=== PATIENT | male | born 1935 | race Caucasian/White ===

== ENCOUNTER 2017-03-28 08:32 | Inpatient (IN) | payer OTHER, MEDICARE ==
[~2017-03-28] VITALS: Ht 170.2 cm; Wt 75.8 kg
[~2017-03-28 08:32] MED LIST: ALENDRONATE SOD70 MG PO; AUGMENTIN 875875 MG PO; CALCIUM + D 6001 TAB PO; LOSARTAN POTAS100 M1 PO; Robitussin Dm PO; SYMBICORT 80/4.1 PUF INH; VENTOLIN1 PUF INH; VITAMIN D32000 IU PO; VITAMIN D32000 UNI1 PO
--- NOTE | 2017-03-28 09:03 | ED DYSPNEA/ASTHMA COMPLAINT ---
History of Present Illness General Chief Complaint: General Adult Stated Complaint: SOB Source: patient Exam Limitations: no limitations Vital Signs & Intake/Output Vital Signs & Intake/Output Vital Signs Date Time Temp Pulse Resp B/P B/P Pulse O2 O2 Flow FiO2 Mean Ox Delivery Rate 03/28 1415 98.7 120 18 119/70 96 03/28 1326 98.2 113 24 115/56 94 Nasal 3.0L Cannula 03/28 1225 99.1 123 24 114/65 03/28 1217 99.1 118 24 114/65 94 Nasal 3.0L Cannula 03/28 1101 99.2 145 22 115/65 03/28 0955 92 Nasal 3.0L Cannula 03/28 0930 92 Nasal 2.0L Cannula 03/28 0845 99.5 116 28 119/71 89 Room Air Allergies Coded Allergies: NO KNOWN ALLERGIES (07/24/13) Reconcile Medications Albuterol Sulfate (Proair Hfa) 90 MCG HFA.AER.AD 2 PUF INH Q4-6 PRN PRN SHORTNESS OF BREATH (Reported) Amlodipine Besylate 5 MG TABLET 1 TAB PO DAILY HEART (Reported) Cholecalciferol (Vitamin D3) (Vitamin D3) 2,000 UNIT TABLET 1 TAB PO DAILY VITAMIN SUPPORT (Reported) Fluticasone/Salmeterol (Advair 250-50 Diskus) 250 MCG-50 MCG/DOSE BLST.W.DEV 1 PUF INH BID BREATHING PROBLEMS (Reported) Losartan Potassium 100 MG TABLET 1 TAB PO DAILY HEART (Reported) Metoprolol Tartrate 25 MG TABLET 1 TAB PO BID HEART (Reported) Triage Note: PT C/O SOB X 2 WEEKS. STATES HE USED TO GET SOB WITH EXERTION BUT NOW HE BECOMES SOB AT REST. PT DENIES CP. O2 SAT 89% ON RA IN TRIAGE Triage Nurses Notes Reviewed? yes Onset: Abrupt Duration: week(s):, constant, getting worse Timing: recent history Severity: moderate, severe HPI: 81-year-old male comes into emergency room with complaints of shortness of breath getting progressively worse over the past few weeks. Denies any chest pain. Denies any vomiting. Denies any chills. Patient has a [id number]-javg history. Patient reports that walking 10-15 steps he feels extremely short of breath and winded. He comes in for further evaluation. (Abhijeet Bae) Past History Travel History Traveled to [place] past 21 day No Medical History Any Pertinent Medical History? see below for history Cardiovascular: hypertension, A-FIB Respiratory: COPD History of MRSA: No History of VRE: No History of CDIFF: No Surgical History Surgical History: non-contributory Psychosocial History Who do you live with Spouse Services at Home None What is your primary language Macanese Tobacco Use: Quit >30 days ago ETOH Use: denies use Illicit Drug Use: denies illicit drug use Family History Family History, If Any: BROTHER BROTHER Relation not specified for: FH: CAD (coronary artery disease) Hx Contributory? No (Abhijeet Bae) Review of Systems Review of Systems Constitutional: Reports: see HPI. EENTM: Reports: no symptoms. Respiratory: Reports: see HPI. Cardiovascular: Reports: no symptoms. GI: Reports: no symptoms. Genitourinary: Reports: no symptoms. Musculoskeletal: Reports: no symptoms. Skin: Reports: no symptoms. Neurological/Psychological: Reports: no symptoms. Hematologic/Endocrine: Reports: no symptoms. Immunologic/Allergic: Reports: no symptoms. All Other Systems: Reviewed and Negative (Abhijeet Bae) Physical Exam Physical Exam General Appearance: alert, awake, moderate distress Head: atraumatic Eyes: Bilateral: normal appearance. Ears, Nose, Throat: normal ENT inspection, hearing grossly normal Neck: normal inspection Respiratory: decreased breath sounds, respiratory distress (moderate) Cardiovascular: irregularly irregular Extremities: normal inspection, normal range of motion, no edema Neurologic/Psych: awake, alert, oriented x 3, normal gait, normal mood/affect Skin: intact, normal color Core Measures ACS in differential dx? No CVA/TIA Diagnosis No Sepsis Present: No Sepsis Focused Exam Completed? No (Abhijeet Bae) Progress Differential Diagnosis: asthma, AMI, bronchitis, costochondritis, CHF, COPD, musculoskeletal pain, pericarditis, pulmonary embolism, pneumonia, pneumothorax, rib fracture, unstable angina Plan of Care: Orders Procedure Date/time Status CBC WITHOUT DIFFERENTIAL 03/29 0600 Active BASIC ELECTROLYTES PLUS BUN&CR 03/29 0600 Active Regular Diet 03/28 L Active TROPONIN LEVEL 03/28 2200 Active EKG 03/28 2200 Active TROPONIN LEVEL 03/28 1600 Complete EKG 03/28 1600 Active Lab Add-on Test 03/28 1146 Active STREP PNEUMO URINARY ANTIGEN 03/28 1143 Active LEGIONELLA URINARY ANTIGEN 03/28 1143 Active LOWER RESPIRATORY CULTURE 03/28 1143 Active Pathway - chart 03/28 1141 Active House Staff 03/28 1141 Active Patient Data 03/28 1141 Active Code Status 03/28 1141 Active LACTIC ACID 03/28 1139 Complete Patient Data 03/28 1120 Active Admit to inpatient 03/28 1052 Active Vital Signs 03/28 1052 Active Code Status 03/28 1052 Complete Intake & Output 03/28 0954 Active THYROID STIMULATING HORMONE 03/28 0925 Complete TOTAL IRON BINDING CAPACITY 03/28 0925 Complete FREE T4 03/28 0925 Complete FERRITIN 03/28 0925 Complete SERUM IRON 03/28 0925 Complete Telemetry/Health Technician Hearing 03/28 0843 Active RAPID VIRAL INFLUENZA A 03/28 0839 Complete BLOOD CULTURE 03/28 0839 Active TROPONIN LEVEL 03/28 0839 Complete LACTIC ACID 03/28 0839 Complete COMPREHENSIVE METABOLIC PANEL 03/28 0839 Complete CBC WITHOUT DIFFERENTIAL 03/28 0839 Complete EKG 03/28 0834 Active TRC EVALUATION (GEN) 03/28 UNK Active VTE Mechanical Prophylaxis 03/28 UNK Active Vital Signs 03/28 UNK Active Telemetry/Health Technician Hearing 03/28 UNK Active Current Medications Sig/Edilberto Start time Last Medication Dose Stop Time Status Admin Amlodipine Besylate 5 MG DAILY 03/29 1000 AC (Norvasc) Azithromycin 500 MG DAILY 03/29 1000 AC (Zithromax) Dextrose/Water 250 ML (D5W) Ceftriaxone Sodium 1,000 MG DAILY 03/29 1000 AC (Rocephin) Cholecalciferol 1,000 IU DAILY 03/29 1000 AC (Vitamin D) Enoxaparin Sodium 40 MG DAILY 03/29 1000 AC (Lovenox) Losartan Potassium 100 MG DAILY 03/29 1000 AC (Cozaar) Albuterol Sulfate 2 PUF Q4-6 PRN PRN 03/28 1200 AC (Ventolin) Budesonide/ 2 PUF BID 03/28 1147 AC 03/28 Formoterol Fumarate 1232 (Symbicort) Metoprolol Tartrate 25 MG BID 03/28 1147 AC 03/28 (Lopressor) 1225 Acetaminophen 650 MG Q6P PRN 03/28 1145 AC (Tylenol) Acetaminophen 1,000 MG Q6P PRN 03/28 1145 AC (Ofirmev) Sodium Chloride 1,000 ML .[id number] 03/28 1145 AC 03/28 (Normal Saline 0.9%) 03/29 0104 1232 Laboratory Tests 03/28/17 1345: Troponin I 0.02 03/28/17 1110: Lactic Acid 1.9 03/28/17 0925: Anion Gap 17 H, Estimated GFR > 60, BUN/Creatinine Ratio 25.0, Glucose 112 H, Lactic Acid 2.2 H, Calcium 9.4, Iron 19 L, TIBC 294, Ferritin 130.0, Total Bilirubin 1.4 H, AST 15 L, ALT 28, Alkaline Phosphatase 135 H, Troponin I 0.02, Total Protein 7.6, Albumin 4.3, Globulin 3.3, Albumin/Globulin Ratio 1.3, TSH 3.680, Free T4 1.49, CBC w Diff MAN DIFF ORDERED, RBC 5.79, MCV 67.4 L, MCH 20.9 L, MCHC 31.0 L, RDW 16.9 H, MPV 8.8, Gran % 85.7 H, Lymphocytes % 6.6 L, Monocytes % 7.1, Eosinophils % 0.6, Basophils % 0, Absolute Granulocytes 14.7 H, Segmented Neutrophils 76 H, Band Neutrophils 2, Absolute Lymphocytes 1.1 L , Lymphocytes 12 L, Monocytes 9, Absolute Monocytes 1.2 H, Absolute Eosinophils 0.1, Basophils 1, Absolute Basophils 0, Platelet Estimate ADEQUATE, Polychromasia 1+, Hypochromic-Microcytic 2+, Poikilocytosis 2+, Anisocytosis 2+, Microcytic Cells 2+, Ovalocytes 1+, Elliptocytes 1+ Microbiology 03/28 1143 URINE ROUT: Legionella Antigen - ORD 03/28 1143 URINE ROUT: Streptococcus pneumoniae Antigen (M - ORD 03/28 1143 LOWER RESP: Respiratory Culture - ORD 03/28 1143 LOWER RESP: Gram Stain - ORD 03/28 1045 BLOOD: Blood Culture - RECD 03/28 0945 BLOOD: Blood Culture - RECD 03/28 929 NASOPHARYN: Influenza Virus A & B Rapid Smear - COMP Diagnostic Imaging: Viewed by Me: Radiology Read. Discussed w/RAD: Radiology Read. Initial ED EKG: rate (118), AFIB (Abhijeet Bae) Departure Departure Disposition: STILL A PATIENT Condition: Stable Clinical Impression Primary Impression: Right lower lobe pneumonia Secondary Impressions: Hypoxia, Rapid atrial fibrillation Referrals: Selina Deal APRN (PCP/Family) Departure Forms: Customer Survey General Discharge Information Admission Note Spoke With: Ramya Maier MD Documentation of Exam: Documentation of any treatments & extenuating circumstances including Concerns Regarding Discharge (functional status, medication knowledge or non-compliance, living conditions, etc.) that warrant an admission rather than observation: Patient will require supplemental oxygen. IV antibiotics. Pulmonary consultation. Medications for rate control of A. fib. Prior history of intracranial bleed which is why the patient is not on oral anticoagulants. His O2 saturation dropped to 84% on room air when he ambulates. She is not on oxygen normally. (Abhijeet Bae) Admission Note Documentation of Exam: Documentation of any treatments & extenuating circumstances including Concerns Regarding Discharge (functional status, medication knowledge or non-compliance, living conditions, etc.) that warrant an admission rather than observation: I've seen and examined the patient and I agree with the PA. The patient has rapid A. fib. Pneumonia. And hypoxia he requires IV antibiotics. PA/SOCIAL MEDIA COMMUNITY MANAGER Co-Sign Statement Statement: ED Attending supervision documentation- [X] I saw and evaluated the patient. I have also reviewed all the pertinent lab results and diagnostic results. I agree with the findings and the plan of care as documented in the PA's/SOCIAL MEDIA COMMUNITY MANAGER's documentation. [] I have reviewed the ED Record and agree with the PA's/SOCIAL MEDIA COMMUNITY MANAGER's documentation. [] Additions or exceptions (if any) to the PAs/SOCIAL MEDIA COMMUNITY MANAGER's note and plan are summarized below: [] (Lake Gomez DO) Critical Care Note Critical Care Note Critical Care Time: 30-74 min (45) (Abhijeet Bae)
[2017-03-28] MEDS ORDERED: METOPROLOL TART25 M1 PO (09:07)
[2017-03-28] MEDS ORDERED: AMLODIPINE BESYL5 M1 PO (09:07)
[2017-03-28] MEDS ORDERED: ADVAIR 250-501 EACH INH (09:08)
[2017-03-28] MEDS ORDERED: PROAIR HFA8.5 GM INH (09:10)
--- NOTE | 2017-03-28 09:15 | RADIOLOGY REPORT ---
EXAMINATION: XR CHEST CLINICAL INFORMATION: Shortness of breath COMPARISON: 12/12/2016 TECHNIQUE: 2 views of the chest were obtained. FINDINGS: There are increasingly conspicuous streaky opacities at the right lung base concerning for developing pneumonia. No pleural effusion or pneumothorax. Normal pulmonary vascularity. Cardiac silhouette is enlarged. The aorta is tortuous. There is sharp convex right thoracic scoliosis. 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 Diffuse osteopenia. IMPRESSION: Increasing right base opacity is suspicious for pneumonia. Recommend follow-up after treatment to confirm resolution.
[2017-03-28 09:49] LABS: ABSOLUTE BASOPHIL COUNT 0 /CUMM (0.0-0.2); ABSOLUTE EOSINOPHIL COUNT 0.1 /CUMM (0.0-0.7); ABSOLUTE GRANULOCYTE CT 14.7 /CUMM (1.4-6.5); ABSOLUTE LYMPH COUNT 1.1 /CUMM (1.2-3.4); ABSOLUTE MONOCYTE COUNT 1.2 /CUMM (0.10-0.60); BASOPHIL % 0 % (0.0-2.0); EOSINOPHIL % 0.6 % (0-5); GRANULOCYTE % 85.7 % (42.2-75.2); MEAN CORPUSCULAR HGB 20.9 PG (27.0-31.0); MEAN CORPUSCULAR VOLUME 67.4 FL (80.0-94.0); MEAN PLATELET VOLUME 8.8 FL (7.4-10.4); PLATELET COUNT 398 /CUMM (130-400); RBC DISTRIBUTION WIDTH 16.9 % (11.5-14.5); RED BLOOD CELL CT 5.79 /CUMM (4.70-6.10); WHITE BLOOD CELL COUNT 17.1 /CUMM (4.8-10.8)
--- NOTE | 2017-03-28 11:37 | History & Physical ---
Fitz Medina 03/28/17 1136: General Information and HPI MD Statement: I have seen and personally examined JORGE L RIZVI and documented this H&P. The patient is a 81 year old M who presented with a patient stated chief complaint of worsening shortness of breath, productive cough, chills for 1 day. Source of Information: patient Exam Limitations: no limitations History of Present Illness: This is a 81-year-old male with past medical history significant for COPD not on home oxygen, hypertension, history of atrial fibrillation on metoprolol, not on anticoagulation because of intracranial bleed presented to the emergency department with chief complaint of worsening shortness of breath, productive cough and chills for 1 day. Patient reports ongoing shortness of breath on exertion for last 1 week associated with productive cough. However he noticed worsening shortness of breath even at rest for last 1 day. He reports clear white colored sputum associated with cough for last 1 week. Denies any sick contact exposure, travel history. Of note he received his flu shot and pneumonia shot this year. Baseline he has COPD, uses proair and advair inhalers. Never admitted for any COPD exacerbations. Denies any chest pain, palpitations, chest pain with deep breaths, fever, hemoptysis, nausea, vomiting, abdomen pain, change in bladder or bowel habits. Review of systems was negative except for shortness of breath at rest, productive cough, chills. Patient reports being diagnosed with atrial fibrillation one year ago. He usually follows up with Dr. العلي hand folder. He usually takes metoprolol tartrate 25 mg twice daily for atrial fibrillation. However he is not on any blood thinners because of intracranial bleed that was 20 years back. Patient was last admitted to [facility] in 2013 for pneumonia and sepsis. Last echocardiogram was done in 2012 which showed ejection fraction 55% and right ventricular hypertrophy. He has 24-axyh-lvsp smoking history. Quit smoking 8 years ago. Denies any alcohol abuse, illicit drug abuse. Family history is pertinent for leukemia- mother, unknown cancer- father. He is independent of all activities. He usually follows up with primary care physician, hand folder and duplicate maker Dr. Duran. Allergies/Medications Allergies: Coded Allergies: NO KNOWN ALLERGIES (07/24/13) Home Med list Albuterol Sulfate (Proair Hfa) 90 MCG HFA.AER.AD 2 PUF INH Q4-6 PRN PRN SHORTNESS OF BREATH (Reported) Amlodipine Besylate 5 MG TABLET 1 TAB PO DAILY HEART (Reported) Cholecalciferol (Vitamin D3) (Vitamin D3) 2,000 UNIT TABLET 1 TAB PO DAILY VITAMIN SUPPORT (Reported) Fluticasone/Salmeterol (Advair 250-50 Diskus) 250 MCG-50 MCG/DOSE BLST.W.DEV 1 PUF INH BID BREATHING PROBLEMS (Reported) Losartan Potassium 100 MG TABLET 1 TAB PO DAILY HEART (Reported) Metoprolol Tartrate 25 MG TABLET 1 TAB PO BID HEART (Reported) Compliance With Home Meds: GOOD Past History Travel History Traveled to [place] past 21 day No Medical History Cardiovascular: hypertension, A-FIB Respiratory: COPD History of MRSA: No History of VRE: No History of CDIFF: No Surgical History Surgical History: non-contributory Past Family/Social History Family History Relations & Conditions if any BROTHER BROTHER MOTHER MOTHER Relation not specified for: FH: CAD (coronary artery disease) FH: leukemia Psychosocial History Services at Home: None Smoking Status: Former Smoker ETOH Use: denies use Illicit Drug Use: denies illicit drug use Review of Systems Review of Systems Constitutional: Reports: diaphoresis, fever, malaise, weakness. Denies: chills. EENTM: Denies: blurred vision, double vision, visual changes. Cardiovascular: Denies: chest pain, edema, orthopena, palpitations, peripheral edema, syncope. Respiratory: Reports: cough, short of breath, sputum production. Denies: hemoptysis, orthopnea, stridor, wheezing. GI: Denies: abdominal pain, bloating, constipation, diarrhea, melena, nausea, bloody stool, vomiting. Genitourinary: Denies: discharge, dysuria, frequency. Musculoskeletal: Denies: back pain, gout, joint pain, joint swelling. Neurological/Psychological: Denies: anxiety, ataxia, headache, numbness. Exam & Diagnostic Data Last 24 Hrs of Vital Signs/I&O Vital Signs Date Time Temp Pulse Resp B/P B/P Pulse O2 O2 Flow FiO2 Mean Ox Delivery Rate 03/28 1101 99.2 145 22 115/65 03/28 0930 92 Nasal 2.0L Cannula 03/28 0845 99.5 116 28 119/71 89 Room Air Intake & Output 03/28 1600 03/28 0800 03/28 0000 Intake Total 0 Output Total Balance 0 Intake, Oral 0 Patient 72.575 kg Weight Weight Reported by Patient Measurement Method Physical Exam General Appearance Alert, Oriented X3, Cooperative, No Acute Distress Skin No Rashes, No Breakdown, No Significant Lesion Skin Temp/Moisture Exam: Warm/Dry Sepsis Skin Exam (color): Normal for Ethnicity HEENT Atraumatic, PERRLA, EOMI, Mucous Membr. moist/pink Neck Supple, No JVD Lymphatic Cervical nl Cardiovascular Normal S1, Normal S2, No Murmurs, irregularly irregular Lungs Normal Air Movement Abdomen Normal Bowel Sounds, Soft, No Tenderness Neurological Strength at 5/5 X4 Ext, Reflexes 2+ Extremities No Clubbing, No Cyanosis, No Edema, Normal Pulses, No Tenderness/ Swelling Vascular Normal Pulses, Pulses Symmetrical Sepsis Peripheral Pulse Location: Radial Sepsis Peripheral Pulse Exam: Normal Sepsis Cap Refill Exam: <2 Sec Last 24 Hrs of Labs/Joe: Laboratory Tests 03/28/17 1110: Lactic Acid 1.9 03/28/17 0925: Anion Gap 17 H, Estimated GFR > 60, BUN/Creatinine Ratio 25.0, Glucose 112 H, Lactic Acid 2.2 H, Calcium 9.4, Iron Pending, TIBC Pending, Ferritin Pending, Total Bilirubin 1.4 H, AST 15 L, ALT 28, Alkaline Phosphatase 135 H, Troponin I 0.02, Total Protein 7.6, Albumin 4.3, Globulin 3.3, Albumin/Globulin Ratio 1.3 , TSH Pending, Free T4 Pending, CBC w Diff MAN DIFF ORDERED, RBC 5.79, MCV 67.4 L, MCH 20.9 L, MCHC 31.0 L, RDW 16.9 H, MPV 8.8, Gran % 85.7 H, Lymphocytes % 6.6 L, Monocytes % 7.1, Eosinophils % 0.6, Basophils % 0, Absolute Granulocytes 14.7 H, Segmented Neutrophils 76 H, Band Neutrophils 2, Absolute Lymphocytes 1.1 L, Lymphocytes 12 L, Monocytes 9, Absolute Monocytes 1.2 H, Absolute Eosinophils 0.1, Basophils 1, Absolute Basophils 0, Platelet Estimate ADEQUATE, Polychromasia 1+, Hypochromic-Microcytic 2+, Poikilocytosis 2+, Anisocytosis 2+, Microcytic Cells 2+, Ovalocytes 1+, Elliptocytes 1+ Microbiology 03/28 1143 URINE ROUT: Legionella Antigen - ORD 03/28 1143 URINE ROUT: Streptococcus pneumoniae Antigen (M - ORD 03/28 1143 LOWER RESP: Respiratory Culture - ORD 03/28 1143 LOWER RESP: Gram Stain - ORD 03/28 1045 BLOOD: Blood Culture - RECD 03/28 0945 BLOOD: Blood Culture - RECD 03/28 0930 NASOPHARYN: Influenza Virus A & B Rapid Smear - COMP Diagnostic Data EKG Results EKG showed atrial fibrillation, rate 118, no P waves, no ST-T wave changes CXR Results Chest x-ray findings suggestive of right lower lobe pneumonia Assessment/Plan Assessment: This is a 81-year-old male with past medical history significant for COPD not on home oxygen, hypertension, history of atrial fibrillation on metoprolol, not on anticoagulation because of intracranial bleed presented to the emergency department with chief complaint of worsening shortness of breath, productive cough and chills for 1 day. Vitals afebrile, tachycardia 116, respiratory rate 28, blood pressure 119/67, saturating at 89 on 2 L. Pertinent labs leukocytosis 17.1, hemoglobin 12 and hematocrit 39, platelets 398. BUN and creatinine wnl. Troponin negative. Total bilirubin 1.4, 15, 28, 135. Chest x-ray showed right base opacity consistent with pneumonia. EKG showed rapid A. fib, rate 118, no ST-T wave changes. Prior EKG in 2016 was in sinus rhythm. 1. Sepsis secondary to community-acquired pneumonia Patient presented with worsening shortness of breath at rest, productive cough and chills for 1 day. He is afebrile with tachycardia and tachypnea requiring 2 L oxygen supplementation. He was found to have leukocytosis 17.1 and lactic acidosis 2.2. Chest x-ray showed right base opacity consistent with pneumonia. * He will be admitted to the general medicine for management of sepsis secondary to pneumonia with underlying COPD. * Monitor vitals every shift * Provide oxygen supplementation to maintain saturation above 88. Of note he desaturated to 84 on ambulation. * We will provide IV antibiotics for community-acquired pneumonia with IV ceftriaxone 1 g and azithromycin 500 mg daily for 7 days. * IV gentle hydration given her elevated lactic acid. * Trended lactic acid 2.2-1.9. * IV Tylenol for fever * Please follow-up blood cultures and sputum cultures * Follow-up urine Legionella and strep pneumonia antigen * The total respiratory care * Inhaler treatments 2. Rapid A. fib Patient was found to have tachycardia 116-140. He received 1 dose of 5 mg IV Cardizem in the emergency room. Patient reports being diagnosed with atrial fibrillation one year ago. He usually follows up with Dr. العلي hand folder. He usually takes metoprolol tartrate 25 mg twice daily for atrial fibrillation. However he is not on any blood thinners because of intracranial bleed that was 20 years back. * Rapid A. fib most possibly from sepsis and pneumonia/ hypoxia. * Continuous telemetry monitoring * Serial troponin and EKG * Continue metoprolol titrate 25 twice daily for rate control * Given his high [id number] score- 4, patient is at high risk for stroke. * Patient is not taking baby aspirin. * Will consult cardiology for further recommendations and requirements for any echocardiogram. Microcytic anemia Hemoglobin 12 and hematocrit 39. MCV 67. Will check iron studies. Hypertension Continue home medication amlodipine, losartan. COPD Continue inhalers Advair and Symbicort. Full code Regular diet DVT prophylaxis subcutaneous Lovenox As Ranked By This Provider Problem List: 1. Rapid atrial fibrillation 2. Right lower lobe pneumonia 3. Hypoxia Core Measures/Misc (10/28) Acute Coronary Syndrome ACS Diagnosis: No Congestive Heart Failure Congestive Heart Failure Diagnosis No Cerebrovascular Accident CVA/TIA Diagnosis: No VTE (View Protocol) VTE Risk Factors Age>40 No Mechanical VTE Prophylaxis d/t N/A MechProphylax Ordered No VTE Pharm Prophylaxis d/t NA PharmProphylax ordered Sepsis (View protocol) Sepsis Present: No Mirna Sandoval MD 03/28/17 1410: Attending MD Review Statement Attending Statement Attending MD Statement: examined this patient, discuss w/resident/PA/BREWING TECHNICIAN, agreed w/resident/PA/BREWING TECHNICIAN, reviewed EMR data (avail), discussed with nursing, reviewed images Attending Assessment/Plan: 81-year-old male past medical history of A. fib not on anticoagulation due to history of intracranial hemorrhage in the remote past. He also has underlying COPD not on home oxygen and hypertension on Norvasc losartan and metoprolol. He is here with what appears to be pneumonia and sepsis. He has a cough, sputum, leukocytosis with a left shift, lactic acidosis resolved with fluids and antibiotics and the rapid A. fib likely secondary to the sepsis. We'll treat him with IV ceftriaxone and azithromycin, follow-up on the blood and sputum cultures. Will get a formal cardiology consult given the fact that he's not even on aspirin in terms of stroke prevention given his high chads score and will continue his Norvasc, losartan and metoprolol. Low dose hydration, follow- up recent echo and follow closely.
--- NOTE | 2017-03-28 14:10 | Admission Certification ---
Admission Certification Certification Statement - As attending physician, I certify that at the time of - admission, based on clinical presentation, severity of - symptoms, need for further diagnostic testing and - therapeutic interventions, and risk of adverse outcomes - without in-hospital treatment, in my clinical assessment, - this patient requires an acute hospital stay for a minimum - of two nights or longer. I have also considered psychsocial - factors such as support system, advanced age, financial - issues, cognitive issues, and failed out-patient treatments, - past re-admission history, safety of patient, and lack of - compliance as applicable. Specific rationale supporting this admission is: Pneumonia and rapid A. fib
[2017-03-28 18:49] VITALS: BP 122/74
[2017-03-28 22:47] VITALS: BP 120/72
[2017-03-29 06:58] VITALS: BP 124/80
--- NOTE | 2017-03-29 07:43 | PN- Housestaff ---
Shoshana DUKE,Isaias 03/29/17 0743: Subjective Follow-up For: Community Acquired Pneumonia Sepsis Afib with RVR Tele-Events Since Last Visit: Atrial Fibrillation HR 112-141 Subjective: Patient seen and examined. He is seen sitting upright at the end of his bed leaning on a table maintained on supplemental oxygen via nasal cannula. He appears to be in no acute distress. He reports feeling much better than when he came in yesterday but still admits to profound shortness of breath with movement. He has a mild productive cough today. He remained tachycardic to 110s- 140s overnight, but otherwise denies any palpitations, chest pain, lightheadedness, dizziness, or heartburn. Review of Systems Constitutional: Reports: see HPI. Objective Last 24 Hrs of Vital Signs/I&O Vital Signs Date Time Temp Pulse Resp B/P B/P Pulse O2 O2 Flow FiO2 Mean Ox Delivery Rate 03/29 0825 98.0 123 24 124/80 03/29 0802 94 Nasal 3.0L Cannula 03/29 0658 98.0 123 24 124/80 97 Nasal 4.0L Cannula 03/29 0000 Nasal 4.0L Cannula 03/28 2355 98.3 03/28 2250 99.9 03/28 2247 99.5 131 22 120/72 94 Nasal 4.0L Cannula 03/28 2044 Nasal 4.0L Cannula 03/28 1905 140 120/70 03/28 1849 98.9 132 22 122/74 94 Nasal 4.0L Cannula 03/28 1830 94 Nasal 4.0L Cannula 03/28 1747 98.5 122 20 113/72 96 Nasal 4.0L Cannula 03/28 1415 98.7 120 18 119/70 96 03/28 1326 98.2 113 24 115/56 94 Nasal 3.0L Cannula 03/28 1225 99.1 123 24 114/65 03/28 1217 99.1 118 24 114/65 94 Nasal 3.0L Cannula 03/28 1101 99.2 145 22 115/65 03/28 0955 92 Nasal 3.0L Cannula 03/28 0930 92 Nasal 2.0L Cannula Intake & Output 03/29 1600 03/29 0800 03/29 0000 Intake Total 110 220 Output Total 300 Balance 110 -80 Intake, IV 10 Intake, Oral 100 220 Output, Urine 300 Patient 75.75 kg Weight Weight Reported by Patient Measurement Method Physical Exam General Appearance: Alert, Oriented X3, Cooperative, No Acute Distress Other Physical Findings: GEN: well developed, well nourished elderly man in no acute distress HEENT: NCAT, PERRL, EOMI, anicteric sclera, MMM, nasal cannula in place NECK: Supple, no JVD, trachea midline, no accessory muslce use CARD: normal s1/s2; tachycardic, irregularly irregular PULM: CTA bilaterally, tripodding ABD: Soft, NT, ND, BS+ NEURO: Awake and alert, CN II-XII grossly intact EXT: normal pulses, no cyanosis, clubbing, edema Current Medications: Current Medications Sig/Edilberto Start time Last Medication Dose Route Stop Time Status Admin Acetaminophen 650 MG Q6P PRN 03/28 1145 AC PO Acetaminophen 1,000 MG Q6P PRN 03/28 1145 AC 03/28 IV 2250 Albuterol Sulfate 2 PUF Q4-6 PRN PRN 03/28 1200 AC INH Amlodipine Besylate 5 MG DAILY 03/29 1000 AC PO Azithromycin 500 MG DAILY 03/29 1000 AC Dextrose/Water 250 ML IV Azithromycin 500 MG ONCE ONE 03/28 1000 DC 03/28 Dextrose/Water 250 ML IV 03/28 1059 1049 Budesonide/ 2 PUF BID 03/28 1147 AC 03/28 Formoterol Fumarate INH 2114 Ceftriaxone Sodium 1,000 MG DAILY 03/29 1000 AC IV Ceftriaxone Sodium 0 .STK-MED ONE 03/28 1058 DC .ROUTE Ceftriaxone Sodium 1,000 MG ONCE ONE 03/28 1000 DC 03/28 IV 03/28 1001 1208 Cholecalciferol 1,000 IU DAILY 03/29 1000 AC PO Diltiazem HCl 0 .STK-MED ONE 03/28 1058 DC .ROUTE Diltiazem HCl 5 MG ONCE ONE 03/28 1045 DC 03/28 IV 03/28 1046 1101 Enoxaparin Sodium 40 MG DAILY 03/29 1000 CAN SC Guaifenesin 10 ML Q6P PRN 03/28 2015 AC PO Ipratropium [place] 2.5 ML TID 03/28 2200 AC 03/29 INH 0802 Losartan Potassium 100 MG DAILY 03/29 1000 AC PO Metoprolol Tartrate 50 MG BID 02/16 1000 AC 03/29 PO 0825 Metoprolol Tartrate 0 .STK-MED ONE 03/28 1227 DC PO Metoprolol Tartrate 25 MG BID 03/28 1147 DC 03/28 PO 1905 Sodium Chloride 1,000 ML .[id number] 03/28 1145 DC 03/28 IV 03/29 0104 1232 Sodium Chloride 2,177.25 ML ONCE ONE 03/28 1030 DC 03/28 IV 03/28 1031 1209 Last 24 Hrs of Lab/Joe Results Last 24 Hrs of Labs/Mics: Laboratory Tests 03/29/17 0625: Anion Gap 16, Estimated GFR > 60, BUN/Creatinine Ratio 24.5, CBC w Diff NO MAN DIFF REQ, RBC 4.88, MCV 68.2 L, MCH 21.3 L, MCHC 31.2 L, RDW 17.1 H, MPV 9.2 , Gran % 73.5, Lymphocytes % 11.7 L, Monocytes % 13.8 H, Eosinophils % 0.6, Basophils % 0.4, Absolute Granulocytes 9.8 H, Absolute Lymphocytes 1.5, Absolute Monocytes 1.8 H, Absolute Eosinophils 0.1, Absolute Basophils 0.1 03/28/17 2205: Troponin I 0.02 03/28/17 1345: Troponin I 0.02 03/28/17 1110: Lactic Acid 1.9 Microbiology 03/28 1901 URINE ROUT: Legionella Antigen - COMP 03/28 190 URINE ROUT: Streptococcus pneumoniae Antigen (M - COMP 03/28 1143 LOWER RESP: Respiratory Culture - ORD 03/28 1143 LOWER RESP: Gram Stain - ORD 03/28 1045 BLOOD: Blood Culture - RECD 03/28 0945 BLOOD: Blood Culture - RECD Assessment/Plan Assessment: 81 year old man with multiple medical problems significant for non-oxygen dependent COPD, and atrial fibrillation not on AC due to IC bleed seen for evaluation of chills, shortness of breath, and productive cough found to have pneumonia/sepsis and poorly controlled atrial fibrillation. Patient remains afebrile with improving leukocytosis while on intravenous ceftriaxone/azithromycin. Strep / Legionella were negative, blood cultures remain no growth to date. He is still requiring supplemental oxygen with subjective shortness of breath on exertion. He remained tachycardic overnight, possibly due to improving sepsis. His metoprolol was increased to 50 mg for better rate control. Losartan is held for relative hypotension with tachycardia in the context of CAP PNA / sepsis. Patient has not had an echocardiogram in some time according to his primary cardiologists office; a repeat one is to be assessed. Patient is being loaded with digoxin for further rate control. Patient admits to a history of thalassemia trait and has know to have "anemia" for many years. He last had a colonoscopy with soaking room operator Dr. Johnson in 2005, report is unavailable but reportedly normal. Patient should have repeat colonoscopy after discharge. Problem List -Community Acquire Pneumonia -Sepsis -Atrial fibrilltation with Rapid Ventricular Response -Iron Deficiency anemia -COPD, not on home oxygen -History of intracranial bleed -Hypertension Plan -Telemetry -Supplemental oxygen, goal > 92%, taper as tolerated -Ceftriaxone 1 g IV Daily -Azithromycin 500 mg IV Daily -Guaifenesin PRN for cough -Metoprolol increased to 50 mg PO BID -Losartan and Amlodipine held for hypotension, restart as needed -Digoxin 0.5 mg IV once given -Continue home meds: Symbicort -Consult with cardiology -Follow up blood/sputum cultures, NGTD -Strep/Legionella: negative -Rapid flu: negative -Follow up echocardiogram -Follow up repeat CXR -Pain control with acetaminophen -Regular Diet -DVT PPx with ALPS -FULL CODE Problem List: 1. Pneumonia 2. Rapid atrial fibrillation Pain Ratin Pain Location: None Pain Goal: Pain 4 or less Pain Plan: See assessment Tomorrow's Labs & Rationales: CBC BMP Jaime DUKE,Mirna 03/29/17 1141: Attending MD Review Statement Attending Statement Attending MD Statement: examined this patient, discuss w/resident/PA/POSTER, agreed w/resident/PA/POSTER, reviewed EMR data (avail), discussed with nursing, reviewed images Attending Assessment/Plan: Overall patient says he feels better than yesterday but he sitting up in he still fairly short of breath. His O2 has titrated down but his heart rate remains very rapid. He is a 81-year-old with treating with IV antibiotics for community-acquired pneumonia with sepsis. His white count has come down, his pressure remains on the low side and will continue IV fluids. The beta faiza dose has been increased for rapid A. fib but cardio is going to see him today. The issue is also the intracranial hemorrhage in the past and no anticoagulation for the A. fib. His iron indices are hard to interpret as he carries a diagnosis of Thal trait and has severe microcytosis and yet has low iron but a very high ferritin. Will need to follow-up on that closely. I will repeat the chest x-ray today and also trend the elevated alkaline phosphatase.
[2017-03-29 07:50] LABS: ABSOLUTE EOSINOPHIL COUNT 0.1 /CUMM (0.0-0.7); WHITE BLOOD CELL COUNT 13.3 /CUMM (4.8-10.8)
[2017-03-29 08:13] LABS: ABSOLUTE BASOPHIL COUNT 0.1 /CUMM (0.0-0.2); ABSOLUTE GRANULOCYTE CT 9.8 /CUMM (1.4-6.5); ABSOLUTE LYMPH COUNT 1.5 /CUMM (1.2-3.4); ABSOLUTE MONOCYTE COUNT 1.8 /CUMM (0.10-0.60); BASOPHIL % 0.4 % (0.0-2.0); EOSINOPHIL % 0.6 % (0-5); GRANULOCYTE % 73.5 % (42.2-75.2); MEAN CORPUSCULAR HGB 21.3 PG (27.0-31.0); MEAN CORPUSCULAR HGB CONC 31.2 G/DL (33.0-37.0); MEAN CORPUSCULAR VOLUME 68.2 FL (80.0-94.0); MEAN PLATELET VOLUME 9.2 FL (7.4-10.4); PLATELET COUNT 349 /CUMM (130-400); RBC DISTRIBUTION WIDTH 17.1 % (11.5-14.5); RED BLOOD CELL CT 4.88 /CUMM (4.70-6.10)
[2017-03-29 08:15] LABS: HEMATOCRIT 33.3 % (42-52)
--- NOTE | 2017-03-29 11:11 | Cons- Cardiology ---
General Information and HPI Consulting Request Date of Consult: 03/29/17 Requested By: Mirna Sandoval MD Reason for Consult: afib Source of Information: patient, old records History of Present Illness: This is a pleasant 81-year-old male with a past medical history of persistent atrial fibrillation not on anticoagulation due to a remote history of spontaneous subarachnoid intracranial hemorrhage (not due to trauma), hypertension, and COPD, who presents to [facility] with a chief complaint of progressive moderate intensity shortness of breath without any palpitations or chest pain. He also complained of a cough. Was found to have evidence of leukocytosis on presentation. He was also found to be tachycardic. Denies any orthopnea or worsening lower extremity edema. Denied any headache, visual changes, slurring of speech, or focal weakness. His beta faiza was increased due to the tachycardia. Allergies/Medications Allergies: Coded Allergies: NO KNOWN ALLERGIES (07/24/13) Home Med List: Albuterol Sulfate (Proair Hfa) 90 MCG HFA.AER.AD 2 PUF INH Q4-6 PRN PRN SHORTNESS OF BREATH (Reported) Amlodipine Besylate 5 MG TABLET 1 TAB PO DAILY HEART (Reported) Cholecalciferol (Vitamin D3) (Vitamin D3) 2,000 UNIT TABLET 1 TAB PO DAILY VITAMIN SUPPORT (Reported) Fluticasone/Salmeterol (Advair 250-50 Diskus) 250 MCG-50 MCG/DOSE BLST.W.DEV 1 PUF INH BID BREATHING PROBLEMS (Reported) Losartan Potassium 100 MG TABLET 1 TAB PO DAILY HEART (Reported) Metoprolol Tartrate 25 MG TABLET 1 TAB PO BID HEART (Reported) Current Medications: Current Medications Sig/Edilberto Start time Last Medication Dose Route Stop Time Status Admin Acetaminophen 650 MG Q6P PRN 03/28 1145 AC PO Acetaminophen 1,000 MG Q6P PRN 03/28 1145 AC 03/28 IV 2250 Albuterol Sulfate 3 ML Q6P PRN 03/29 1015 AC INH Albuterol Sulfate 2 PUF Q4-6 PRN PRN 03/28 1200 AC INH Amlodipine Besylate 5 MG DAILY 03/29 1000 AC PO Azithromycin 500 MG DAILY 03/29 1000 AC 03/29 Dextrose/Water 250 ML IV 0954 Budesonide/ 2 PUF BID 03/28 1147 AC 03/29 Formoterol Fumarate INH 0954 Ceftriaxone Sodium 1,000 MG DAILY 03/29 1000 AC 03/29 IV 0952 Cholecalciferol 1,000 IU DAILY 03/29 1000 AC 03/29 PO 0949 Enoxaparin Sodium 40 MG DAILY 03/29 1000 CAN SC Guaifenesin 10 ML Q6P PRN 03/28 2014 AC PO Ipratropium [place] 2.5 ML TID 03/28 2200 AC 03/29 INH 0802 Losartan Potassium 100 MG DAILY 03/29 1000 AC 03/29 PO 0951 Metoprolol Tartrate 50 MG BID 03/29 1000 AC 03/29 PO 0825 Metoprolol Tartrate 0 .STK-MED ONE 03/28 1227 DC PO Metoprolol Tartrate 25 MG BID 03/28 1147 DC 03/28 PO 1905 Sodium Chloride 1,000 ML ONCE ONE 03/29 1030 AC 03/29 IV 03/29 2029 1105 Sodium Chloride 1,000 ML .[id number] 03/28 1145 DC 03/28 IV 03/29 0104 1232 Review of Systems Review of Systems: Review of systems as per HPI. The remainder of a 10 point review of systems was reviewed and was otherwise negative. Past History Travel History Traveled to [place] past 21 day No Medical History Blood Transfusion Hx: No Neurological: BRAIN BLEED 20 YEARS AGO EENT: NONE Cardiovascular: hypertension, A-FIB Respiratory: COPD Gastrointestinal: NONE Hepatic: NONE Renal: NONE Musculoskeletal: NONE Psychiatric: NONE Endocrine: NONE Blood Disorders: NONE Cancer(s): NONE PRINCIPAL ASSOCIATE/Reproductive: NONE Surgical History Surgical History: non-contributory Family History Relations & Conditions If Any: BROTHER BROTHER MOTHER MOTHER Relation not specified for: FH: CAD (coronary artery disease) FH: leukemia Psychosocial History Where Do You Live? Home Services at Home: None Smoking Status: Former Smoker ETOH Use: denies use Illicit Drug Use: denies illicit drug use Exam & Diagnostic Data Vital Signs and I&O Vital Signs Date Time Temp Pulse Resp B/P B/P Pulse O2 O2 Flow FiO2 Mean Ox Delivery Rate 03/29 0953 119 95/63 03/29 0951 119 95/63 03/29 0825 98.0 123 24 124/80 03/29 0802 94 Nasal 3.0L Cannula 03/29 0658 98.0 123 24 124/80 97 Nasal 4.0L Cannula 03/29 0000 Nasal 4.0L Cannula 03/28 2355 98.3 03/28 2250 99.9 03/28 2247 99.5 131 22 120/72 94 Nasal 4.0L Cannula 03/28 2044 Nasal 4.0L Cannula 03/28 1905 140 120/70 03/28 1849 98.9 132 22 122/74 94 Nasal 4.0L Cannula 03/28 1830 94 Nasal 4.0L Cannula 03/28 1747 98.5 122 20 113/72 96 Nasal 4.0L Cannula 03/28 1415 98.7 120 18 119/70 96 03/28 1326 98.2 113 24 115/56 94 Nasal 3.0L Cannula 03/28 1225 99.1 123 24 114/65 03/28 1217 99.1 118 24 114/65 94 Nasal 3.0L Cannula Intake & Output 03/29 1600 03/29 0800 03/29 0000 03/28 1600 03/28 0800 03/28 0000 Intake Total 110 220 0 Output Total 300 Balance 110 -80 0 Intake, IV 10 Intake, Oral 100 220 0 Output, Urine 300 Patient 167 lb 160 lb Weight Weight Reported by Patient Reported by Patient Measurement Method Physical Exam: General: no apparent distress. Alert. Nasal cannula Eyes: No obvious scleral icterus. HEENT: No jugular venous distention or abnormal jugular venous pulsations. Cardiovascular: Normal intensity S1/S2. Regular Respiratory: Trace wheezes Abdomen: Soft, nontender with no guarding or rebound tenderness. Musculoskeletal: No clubbing or cyanosis noted; trace lower extremity edema Skin: No obvious rashes or ulcerations. Neurologic: No gross focal deficits noted. Lymph: No gross lymphadenopathy. Labs/Joe Results: Laboratory Tests 03/29 03/28 03/28 03/28 0625 2205 1345 1110 Chemistry Sodium (137 - 145 mmol/L) 144 Potassium (3.5 - 5.1 mmol/L) 3.8 Chloride (98 - 107 mmol/L) 105 Carbon Dioxide (22 - 30 mmol/L) 24 Anion Gap (5 - 16) 16 BUN (9 - 20 mg/dL) 27 H Creatinine (0.7 - 1.2 mg/dL) 1.1 Estimated GFR (>60 ml/min) > 60 BUN/Creatinine Ratio (7 - 25 %) 24.5 Lactic Acid (0.7 - 2.1 mmol/L) 1.9 Total Bilirubin (0.2 - 1.3 mg/dL) 0.6 Direct Bilirubin (< 0.4 mg/dL) 0.5 H AST (17 - 59 U/L) 21 ALT (21 - 72 U/L) 31 Alkaline Phosphatase (< 127 U/L) 145 H Troponin I (<0.11 ng/ml) 0.02 0.02 Total Protein (6.3 - 8.2 g/dL) 6.2 L Albumin (3.5 - 5.0 g/dL) 3.2 L Hematology CBC w Diff NO MAN DIFF REQ WBC (4.8 - 10.8 /CUMM) 13.3 H RBC (4.70 - 6.10 /CUMM) 4.88 Hgb (14.0 - 18.0 G/DL) 10.4 L Hct (42 - 52 %) 33.3 L MCV (80.0 - 94.0 FL) 68.2 L MCH (27.0 - 31.0 PG) 21.3 L MCHC (33.0 - 37.0 G/DL) 31.2 L RDW (11.5 - 14.5 %) 17.1 H Plt Count (130 - 400 /CUMM) 349 MPV (7.4 - 10.4 FL) 9.2 Gran % (42.2 - 75.2 %) 73.5 Lymphocytes % (20.5 - 51.1 %) 11.7 L Monocytes % (1.7 - 9.3 %) 13.8 H Eosinophils % (0 - 5 %) 0.6 Basophils % (0.0 - 2.0 %) 0.4 Absolute Granulocytes (1.4 - 6.5 /CUMM) 9.8 H Absolute Lymphocytes (1.2 - 3.4 /CUMM) 1.5 Absolute Monocytes (0.10 - 0.60 /CUMM) 1.8 H Absolute Eosinophils (0.0 - 0.7 /CUMM) 0.1 Absolute Basophils (0.0 - 0.2 /CUMM) 0.1 15 0925 Chemistry Sodium (137 - 145 mmol/L) 145 Potassium (3.5 - 5.1 mmol/L) 4.0 Chloride (98 - 107 mmol/L) 100 Carbon Dioxide (22 - 30 mmol/L) 27 Anion Gap (5 - 16) 17 H BUN (9 - 20 mg/dL) 25 H Creatinine (0.7 - 1.2 mg/dL) 1.0 Estimated GFR (>60 ml/min) > 60 BUN/Creatinine Ratio (7 - 25 %) 25.0 Glucose (65 - 99 mg/dL) 112 H Lactic Acid (0.7 - 2.1 mmol/L) 2.2 H Calcium (8.4 - 10.2 mg/dL) 9.4 Iron (49 - 181 ug/dL) 19 L TIBC (261 - 462 ug/dL) 294 Ferritin (17.9 - 464 ng/mL) 130.0 Total Bilirubin (0.2 - 1.3 mg/dL) 1.4 H AST (17 - 59 U/L) 15 L ALT (21 - 72 U/L) 28 Alkaline Phosphatase (< 127 U/L) 135 H Troponin I (<0.11 ng/ml) 0.02 Total Protein (6.3 - 8.2 g/dL) 7.6 Albumin (3.5 - 5.0 g/dL) 4.3 Globulin (1.9 - 4.2 gm/dL) 3.3 Albumin/Globulin Ratio (1.1 - 2.2 %) 1.3 TSH (0.270 - 4.200 uIU/mL) 3.680 Free T4 (0.78 - 2.44 ng/dL) 1.49 Hematology CBC w Diff MAN DIFF ORDERED WBC (4.8 - 10.8 /CUMM) 17.1 H RBC (4.70 - 6.10 /CUMM) 5.79 Hgb (14.0 - 18.0 G/DL) 12.1 L Hct (42 - 52 %) 39.0 L MCV (80.0 - 94.0 FL) 67.4 L MCH (27.0 - 31.0 PG) 20.9 L MCHC (33.0 - 37.0 G/DL) 31.0 L RDW (11.5 - 14.5 %) 16.9 H Plt Count (130 - 400 /CUMM) 398 MPV (7.4 - 10.4 FL) 8.8 Gran % (42.2 - 75.2 %) 85.7 H Lymphocytes % (20.5 - 51.1 %) 6.6 L Monocytes % (1.7 - 9.3 %) 7.1 Eosinophils % (0 - 5 %) 0.6 Basophils % (0.0 - 2.0 %) 0 Absolute Granulocytes (1.4 - 6.5 /CUMM) 14.7 H Segmented Neutrophils (42.2 - 75.2 %) 76 H Band Neutrophils (0.0 - 5.0 %) 2 Absolute Lymphocytes (1.2 - 3.4 /CUMM) 1.1 L Lymphocytes (20.5 - 51.1 %) 12 L Monocytes (1.7 - 9.3 %) 9 Absolute Monocytes (0.10 - 0.60 /CUMM) 1.2 H Absolute Eosinophils (0.0 - 0.7 /CUMM) 0.1 Basophils (0.0 - 2.0 %) 1 Absolute Basophils (0.0 - 0.2 /CUMM) 0 Platelet Estimate (ADEQUATE) ADEQUATE Polychromasia 1+ Hypochromic-Microcytic 2+ Poikilocytosis 2+ Anisocytosis 2+ Microcytic Cells 2+ Ovalocytes 1+ Elliptocytes 1+ Diagnostic Data EKG Results Tracing was personally reviewed and shows atrial fibrillation at 133 bpm with borderline R-wave progression CXR Results Increasing right base opacity is suspicious for pneumonia. Recommend follow-up after treatment to confirm resolution. Other Results Telemetry tracings were personally reviewed show rapid atrial fibrillation Assessment/Plan Assessment/Plan 1. Sepsis/pneumonia 2. history of persistent atrial fibrillation not on anticoagulation due to a remote history of spontaneous subarachnoid intracranial hemorrhage (not due to trauma) 3. Tachycardia 4. History of hypertension 5. COPD The patient's elevated heart rate is likely precipitated by his sepsis/pneumonia for which he is receiving antibiotic therapy. Agree with the increased beta faiza dosing but would hold his other antihypertensives as his blood pressure is borderline. Recommend giving one dose of digoxin 0.5 mg IV 1 today. Would obtain a transthoracic echocardiogram. He should be kept on telemetry for now. Azael Lemos MD [facility] Consult Acknowledgment - Thank you for your consult request.
--- NOTE | 2017-03-29 13:44 | Patient Discharge Instructions ---
Discharge Instructions General Discharge Information Special Instructions: Take Ceftin and prednisone as directed. Be sure to finish these medications. Stop taking Amlodipine and Losartan. Your dose of Metoprolol has changed, please start taking 100 mg twice day. You have been provided a new prescription. Start taking cardizem CD 120 mg Daily. Follow up with your mechanical technician and primary care provider after discharge. Schedule and appointment with your scullion chief Dr. Johnson for a possible colonoscopy. Acute Coronary Syndrome Inclusion Criteria At DC or during hospital stay patient has or had the following: ACS DIAGNOSIS No Discharge Core Measures Meds if any: Prescribed or Continued at Discharge Meds if any: NOT Prescribed or Continued at Discharge Congestive Heart Failure Inclusion Criteria At DC or during hospital stay patient has or had the following: CHF DIAGNOSIS No Discharge Core Measures Meds if any: Prescribed or Continued at Discharge Meds if any: NOT Prescribed or Continued at Discharge Cerebrovascular accident Inclusion Criteria At DC or during hospital stay patient has or had the following: CVA/TIA Diagnosis No Discharge Core Measures Meds if any: Prescribed or Continued at Discharge Meds if any: NOT Prescribed or Continued at Discharge Venous thromboembolism Inclusion Criteria VTE Diagnosis No VTE Type NONE VTE Confirmed by (Test) NONE Discharge Core Measures - Per Current guidelines, there needs to be overlap - treatment for the first 5 days of Warfarin therapy. - If discharged on Warfarin prior to 5 days of - overlap therapy, the patient will need to be - assessed for post discharge needs including - *Post discharge parental anticoagulation - *Warfarin and/or parental anticoagulation education - *Follow up date to check INR post discharge At least 5 days overlap therapy as Inpatient No Meds if any: Prescribed or Continued at Discharge Note: Overlap Therapy is Warfarin and Anticoagulant Meds if any: NOT Prescribed or Continued at Discharge
[2017-03-29 14:30] VITALS: BP 106/72
--- NOTE | 2017-03-29 15:08 | RADIOLOGY REPORT ---
EXAMINATION: XR PORTABLE CHEST CLINICAL INFORMATION: Community-acquired pneumonia. Sepsis. COMPARISON: Chest x-ray 03/28/2017 TECHNIQUE: Portable frontal view of the chest was obtained. FINDINGS: Stable cardiac silhouette. Patchy opacity at the right lung base is slightly more prominent on today's imaging. Blunting of the right costophrenic angle suggesting a tiny amount of pleural fluid. Dextroscoliosis of the spine with degenerative changes. IMPRESSION: Mild interval worsening of airspace disease at the right lung base, concerning for pneumonia. A tiny amount of right-sided pleural fluid is suspected.
[2017-03-29 19:13] VITALS: BP 120/78
[2017-03-29 22:57] VITALS: BP 148/86
[2017-03-30 06:08] VITALS: BP 124/72
[2017-03-30 08:12] LABS: ABSOLUTE BASOPHIL COUNT 0.1 /CUMM (0.0-0.2); ABSOLUTE EOSINOPHIL COUNT 0.1 /CUMM (0.0-0.7); ABSOLUTE GRANULOCYTE CT 9.5 /CUMM (1.4-6.5); ABSOLUTE LYMPH COUNT 1.7 /CUMM (1.2-3.4); ABSOLUTE MONOCYTE COUNT 1.5 /CUMM (0.10-0.60); BASOPHIL % 0.5 % (0.0-2.0); EOSINOPHIL % 0.8 % (0-5); GRANULOCYTE % 73.8 % (42.2-75.2); HEMATOCRIT 32.5 % (42-52); MEAN CORPUSCULAR HGB 20.8 PG (27.0-31.0); MEAN CORPUSCULAR HGB CONC 30.5 G/DL (33.0-37.0); MEAN CORPUSCULAR VOLUME 68.1 FL (80.0-94.0); PLATELET COUNT 362 /CUMM (130-400); RED BLOOD CELL CT 4.78 /CUMM (4.70-6.10); WHITE BLOOD CELL COUNT 12.9 /CUMM (4.8-10.8)
--- NOTE | 2017-03-30 10:35 | PN- Housestaff ---
NicosaraMarthamagalys 03/30/17 1002: Subjective Follow-up For: -A fib with RVR - Tele-Events Since Last Visit: Afib ranging from 86 to 126, a flutter,some pvc's Subjective: I have seen and examined the patient today morning. He just walked out of bathroom, prior to me seeing him and it did cause him to be short of breath and he looked worked up, after catching some breath, he was able to talk to me, continues to be on 2 liters (not on home oxygen), had his breakfast today morning, tolerated it fine, feels better than yday, however does endorse sob after exertion. Review of Systems Constitutional: Reports: see HPI. EENTM: Reports: no symptoms. Cardiovascular: Reports: palpitations. Respiratory: Reports: short of breath. Gastrointestinal: Reports: no symptoms. Genitourinary: Reports: no symptoms. Musculoskeletal: Reports: no symptoms. Skin: Reports: no symptoms. Objective Last 24 Hrs of Vital Signs/I&O Vital Signs Date Time Temp Pulse Resp B/P B/P Pulse O2 O2 Flow FiO2 Mean Ox Delivery Rate 03/30 0822 96 Nasal 2.0L Cannula 03/30 0800 Nasal 4.0L Cannula 03/30 0608 98.7 109 24 124/72 93 Nasal 4.0L Cannula 03/29 2257 97.8 108 26 148/86 94 Nasal 4.0L Cannula 03/29 2123 Nasal 4.0L Cannula 03/29 1913 130 120/78 03/29 1831 152 110/68 03/29 1629 93 Nasal 4.0L Cannula 03/29 1600 93 Nasal 4.0L Cannula 03/29 1430 97.9 130 24 106/72 95 Nasal 3.0L Cannula 03/29 1424 120 102/63 Intake & Output 03/30 1600 03/30 0800 03/30 0000 Intake Total 420 300 Output Total 600 Balance 420 -300 Intake, IV 100 300 Intake, Oral 320 Output, Urine 600 Physical Exam General Appearance: Alert, Oriented X3, Cooperative Skin: No Rashes, No Breakdown HEENT: Atraumatic, PERRLA Neck: Supple, No JVD Cardiovascular: Normal S1, Normal S2, tachycardic, irregularly irregular Lungs: Normal Air Movement Abdomen: Normal Bowel Sounds, Soft, No Tenderness Extremities: No Clubbing, No Cyanosis, No Tenderness/Swelling Vascular: irregularly irregular Current Medications: Current Medications Sig/Edilberto Start time Last Medication Dose Route Stop Time Status Admin Acetaminophen 650 MG Q6P PRN 03/28 1145 AC PO Acetaminophen 1,000 MG Q6P PRN 03/28 1145 AC 03/28 IV 2250 Albuterol Sulfate 3 ML Q6P PRN 03/29 1015 AC INH Albuterol Sulfate 2 PUF Q4-6 PRN PRN 03/28 1200 AC INH Amlodipine Besylate 5 MG DAILY 03/29 1000 DC PO Azithromycin 500 MG DAILY 03/29 1000 AC 03/30 Dextrose/Water 250 ML IV 0751 Budesonide/ 2 PUF BID 03/28 1147 AC 03/30 Formoterol Fumarate INH 0751 Ceftriaxone Sodium 1,000 MG DAILY 03/29 1000 AC 03/30 IV 0751 Cholecalciferol 1,000 IU DAILY 03/29 1000 AC 03/30 PO 0752 Digoxin 0.5 MG ONCE ONE 03/29 1330 DC 03/29 IV 03/29 1331 1424 Guaifenesin 10 ML Q6P PRN 03/28 2015 AC PO Ipratropium [place] 2.5 ML TID 03/28 2200 AC 03/30 INH 0815 Lorazepam 1 MG BID PRN 03/29 1700 AC 03/29 IV 1728 Losartan Potassium 100 MG DAILY 03/29 1000 DC 03/29 PO 0951 Metoprolol Tartrate 2.5 MG ONCE ONE 03/29 1745 DC 03/29 IV 03/29 1746 1831 Metoprolol Tartrate 75 MG BID 03/29 1742 AC 03/30 PO 0752 Metoprolol Tartrate 50 MG BID 03/29 1000 DC 03/29 PO 0825 Sodium Chloride 1,000 ML ONCE ONE 03/29 1030 DC 03/29 IV 03/29 2029 1105 Last 24 Hrs of Lab/Joe Results Last 24 Hrs of Labs/Mics: Laboratory Tests 03/30/17 0620: Anion Gap 11, Estimated GFR > 60, BUN/Creatinine Ratio 28.8 H, CBC w Diff NO MAN DIFF REQ, RBC 4.78, MCV 68.1 L, MCH 20.8 L, MCHC 30.5 L, RDW 17.0 H, MPV 9.0, Gran % 73.8, Lymphocytes % 13.4 L, Monocytes % 11.5 H, Eosinophils % 0.8, Basophils % 0.5, Absolute Granulocytes 9.5 H, Absolute Lymphocytes 1.7, Absolute Monocytes 1.5 H, Absolute Eosinophils 0.1, Absolute Basophils 0.1 Assessment/Plan Assessment: Mr. Willett is 81 year old man with PMH significant for non-oxygen dependent COPD, and atrial fibrillation not on AC due to IC bleed was seen for evaluation of chills, shortness of breath, and productive cough is being treated for Community acquired pneumonia with iv ceftriaxone and azithromycin and atrial fibrillation with RVR. Problem List #Community Acquire Pneumonia * Mr. Willett remains afebrile with tmax of 98.7, improving leukocytosis 12.9 today ( 17.1 on presentation) while on intravenous ceftriaxone/azithromycin - Day 3 * Previously Strep / Legionella. influenza was negative,blood cultures remain no growth to date. #Atrial fibrillation with Rapid Ventricular Response * His metoprolol was increased to 75 mg for better rate control, ad he also received additional lopressor 2.5 03/29/17 - 18:31, His continues to be in A fib with rate still around 110. * Echo was done on the night of 03/29, is pending reading. * Patient was given digoxin o.5 mg once IV for further rate control. #Iron Deficiency anemia * Patient admits to a history of thalassemia trait and has know to have "anemia " for many years. * He last had a colonoscopy with dye machine operator Dr. Johnson in 2005, report is unavailable but reportedly normal. * Plan for repeat colonoscopy as Outpatient. #COPD, not on home oxygen * Currently SOB on exertion and on 2 liters, sats around 96% * Ct TRC /nebs, symbicort #History of intracranial bleed ( remote) * Remote history > 25 years ago, nontraumatic bleed, however he was not on AC for A fib due the h/o ICH. * Will need to reevalaute and weight benefit v/s risk of AC due to persistent A fib,CHADSVASC2 score of 3 { Stroke risk is 3.2% per year in >90,000 patients ( the [place] Atrial Fibrillation Cohort Study) and 4.6% risk of stroke/TIA/ systemic embolism} therefore he is moderate risk and shoudl otherwise be on AC. #Hypertension * Ct to hold BP meds * BP stable * ct to monitor. FULL CODE DVT PPx with ALPS PP acetaminophen Regular Diet Problem List: 1. Pneumonia 2. Hypertension 3. Right lower lobe pneumonia 4. Hypoxia 5. Rapid atrial fibrillation Pain Ratin Pain Location: back Pain Goal: Remain pain free Pain Plan: ct current control with tylenol Tomorrow's Labs & Rationales: luecocytosis - therefore CBC Jorge Luis DUKE,[place] 03/30/17 1248: Attending MD Review Statement Attending Statement Attending MD Statement: examined this patient, discuss w/resident/PA/MICROSOFT BI ARCHITECT, agreed w/resident/PA/MICROSOFT BI ARCHITECT, reviewed EMR data (avail), discussed with nursing, reviewed images, amended to note Attending Assessment/Plan: 81-year-old male with past medical history significant for chronic atrial fibrillation not on anticoagulation due to a remote history of spontaneous subarachnoid hemorrhage, hypertension, COPD and currently being admitted for pneumonia/sepsis, on antibiotics, on telemetry floor because of the tachycardia given his underlying pneumonia. Cardiology on board and his toes off beta faiza has been uptitrated given his tachycardia but his blood pressure medications on hold because of the borderline blood pressure. Patient also received a stat dose of digoxin. Patient was seen and examined while sitting on the chair and watching TV, reports that he is feeling much better today, denies any overnight events. No overnight fevers and white count is trending down. Patient is still tachycardia with a heart rate of around 110. Well continue to monitor him on the telemetry and will follow further recommendations from the private duty aide. Cultures so far negative. Well continue the rest of his home medications for COPD. Echo Still pending.
[2017-03-30 14:44] VITALS: BP 120/80
[2017-03-30 22:41] VITALS: BP 138/76
[2017-03-31 06:39] VITALS: BP 125/72
[2017-03-31 07:45] LABS: ABSOLUTE BASOPHIL COUNT 0 /CUMM (0.0-0.2); ABSOLUTE EOSINOPHIL COUNT 0.2 /CUMM (0.0-0.7); ABSOLUTE GRANULOCYTE CT 7.2 /CUMM (1.4-6.5); ABSOLUTE LYMPH COUNT 1.3 /CUMM (1.2-3.4); ABSOLUTE MONOCYTE COUNT 1.8 /CUMM (0.10-0.60); BASOPHIL % 0.4 % (0.0-2.0); EOSINOPHIL % 1.7 % (0-5); GRANULOCYTE % 68.9 % (42.2-75.2); HEMATOCRIT 33.3 % (42-52); MEAN CORPUSCULAR VOLUME 67.8 FL (80.0-94.0); MEAN PLATELET VOLUME 8.7 FL (7.4-10.4); PLATELET COUNT 393 /CUMM (130-400); RBC DISTRIBUTION WIDTH 16.7 % (11.5-14.5); RED BLOOD CELL CT 4.91 /CUMM (4.70-6.10); WHITE BLOOD CELL COUNT 10.4 /CUMM (4.8-10.8)
--- NOTE | 2017-03-31 09:57 | ECHOCARDIOGRAM REPORT ---
JORGE L RIZVI Age: 81 : 1935 Gender: M Exam Date: 03/29/2017 14:32 Exam Location: [address] Ht (in): 67 Wt (lb): 170 BSA: 1.92 BP: 128 / 82 Ordering Physician: Isaias Anna MD Referring Physician: Isaias Anna MD Technologist: Min Lyles [facility] Room Number: [id number] Indications: Atrial fibrillation Rhythm: Atrial fibrillation Technical Quality: Technically difficult study FINDINGS Left Ventricle Left ventricular cavity size normal. Normal left ventricular wall thickness. No obvious regional wall motion abnormalities. Left ventricular ejection fraction is estimated at 55 %. Right Ventricle Right ventricle not well visualized, grossly normal. Right Atrium Mild right atrial dilatation. Left Atrium Mild left atrial dilatation. Mitral Valve Mild mitral annular calcification. No mitral stenosis. Trace mitral regurgitation. Aortic Valve No aortic stenosis. Trileaflet aortic valve. Tricuspid Valve Tricuspid valve not well visualized, grossly normal. Trace to mild tricuspid regurgitation. Unable to estimate the right ventricular systolic pressure. Pulmonic Valve Pulmonic valve not well visualized. Pericardium No pericardial effusion. Great Vessels Normal size aortic root. CONCLUSIONS Technically difficult study. Left ventricular cavity size normal. Normal left ventricular wall thickness. No obvious regional wall motion abnormalities. Left ventricular ejection fraction is estimated at 55 %. Right ventricle not well visualized, grossly normal. Mild right atrial dilatation. Mild left atrial dilatation. Unable to estimate the right ventricular systolic pressure. Franko Lemos M.D. (Electronically Signed) Final Date: 31 March 2017 09:56 MEASUREMENTS (Male / Female) Normal Values 2D ECHO LV Diastolic Diameter PLAX 4.2 cm 4.2 - 5.9 / 3.9 - 5.3 cm LV Systolic Diameter PLAX 2.7 cm 2.1 - 4.0 cm LV Fractional Shortening PLAX 35.7 % 25 - 46 % LV Ejection Fraction 2D Teich 65.6 % IVS Diastolic Thickness 1.2 cm LVPW Diastolic Thickness 1.1 cm LV Relative Wall Thickness 0.5 LA Systolic Diameter LX 4.1 cm 3.0 - 4.0 / 2.7 - 3.8 cm LV Diastolic Length 4C 6.3 cm 6.9 - 10.3 cm LV Diastolic Area 4C 24.1 cm LV Diastolic Volume MOD 4C 76.0 cm LV Ejection Fraction MOD 4C 68.4 % LV Stroke Volume MOD 4C 52.0 cm LV Cardiac Index MOD 4C 3297.4 cm/minm LV Systolic Length 4C 5.5 cm LV Systolic Area 4C 12.6 cm LV Systolic Volume MOD 4C 24.0 cm LV Diastolic Volume 4C AL 77.7 cm 85 - 139 / 69 - 109 cm LV Systolic Volume 4C AL 24.6 cm LV Ejection Fraction 4C AL 68.4 % LV Stroke Volume 4C AL 53.2 cm LV Cardiac Index 4C AL 3371.3 cm/minm DOPPLER AV Peak Velocity 156.0 cm/s AV Peak Gradient 9.7 mmHg LVOT Peak Velocity 94.8 cm/s LVOT Peak Gradient 3.6 mmHg Mitral E Point Velocity 113.0 cm/s MV Deceleration Time 144.0 ms TR Peak Velocity 290.0 cm/s TR Peak Gradient 33.6 mmHg Right Atrial Pressure 10.0 mmHg Pulmonary Artery Systolic Pressu 43.6 mmHg Right Ventricular Systolic Press 43.6 mmHg
--- NOTE | 2017-03-31 11:38 | PN- Att Addend ---
Attending Addendum Attending Brief Note 81-year-old male with past medical history significant for chronic atrial fibrillation not on anticoagulation due to a remote history of spontaneous subarachnoid hemorrhage, hypertension, COPD and currently being admitted for pneumonia/sepsis, on antibiotics, on telemetry floor because of the tachycardia given his underlying pneumonia. Cardiology on board and his toes off beta faiza has been uptitrated given his tachycardia but his blood pressure medications on hold because of the borderline blood pressure. Patient also received a stat dose of digoxin. Patient was seen and examined while sitting on the chair and watching TV, reports that he is feeling much better today, denies any overnight events. No overnight fevers and white count is trending down. Patient is still tachycardia with a heart rate of around 110. Echo with no motion wall abnormalities and left Ventricular EF of 55%. Well continue to monitor him on the telemetry and will follow further recommendations from the stone belt sander. Cultures so far negative. Well continue the rest of his home medications for COPD.
[2017-03-31 14:26] VITALS: BP 118/72
[2017-03-31 21:45] VITALS: BP 130/78
[2017-04-01 06:39] VITALS: BP 130/80
--- NOTE | 2017-04-01 07:55 | PN- Housestaff ---
See Addendum Shoshana DUKEIsaias 04/01/17 0755: Subjective Follow-up For: Community Acquired Pneumonia Sepsis Afib with RVR Tele-Events Since Last Visit: Atrial fibrillation HR 104-116 since 0000 No events Subjective: Patient seen and examined. He is seen sitting upright in his chair at bedside resting comfortably maintained on supplemental oxygen via nasal cannula. He appears to be in no acute distress. He reports feeling well and admits that his shortness of breath is somewhat improved, but not completely gone. He states that is still becomes worse with exertion. Review of Systems Constitutional: Reports: see HPI. Objective Last 24 Hrs of Vital Signs/I&O Vital Signs Date Time Temp Pulse Resp B/P B/P Pulse O2 O2 Flow FiO2 Mean Ox Delivery Rate 04/01 0857 130/78 04/01 0838 91 Nasal 4.0L Cannula 04/01 0812 94 Nasal 4.0L Cannula 04/01 0639 98.0 116 20 130/80 95 Nasal 4.0L Cannula 03/31 2202 Nasal 4.0L Cannula 03/31 2145 98.9 125 24 130/78 94 Nasal Cannula 03/31 1940 92 Nasal 4.0L Cannula 03/31 1657 94 Nasal 4.0L Cannula 03/31 1426 98.0 124 22 118/72 96 Nasal 4.0L Cannula Intake & Output 04/01 1600 04/01 0800 04/01 0000 Intake Total 250 300 Output Total 875 250 Balance -625 50 Intake, Oral 250 300 Output, Urine 875 250 Physical Exam General Appearance: Alert, Oriented X3, Cooperative, No Acute Distress Other Physical Findings: GEN: well developed, well nourished elderly man in no acute distress HEENT: NCAT, PERRL, EOMI, anicteric sclera, MMM, nasal cannula in place NECK: Supple, no JVD, trachea midline, no accessory muslce use CARD: normal s1/s2; tachycardic, irregularly irregular PULM: Diffuse wheezing without crackles ABD: Soft, NT, ND, BS+ NEURO: Awake and alert, CN II-XII grossly intact EXT: normal pulses, no cyanosis, clubbing, edema Current Medications: Current Medications Sig/Edilberto Start time Last Medication Dose Route Stop Time Status Admin Acetaminophen 650 MG Q6P PRN 03/28 1145 AC 03/30 PO 2051 Acetaminophen 1,000 MG Q6P PRN 03/28 1145 AC 03/28 IV 2250 Albuterol Sulfate 3 ML Q6P PRN 03/29 1015 AC 03/31 INH 1324 Albuterol Sulfate 2 PUF Q4-6 PRN PRN 03/28 1200 AC 03/31 INH 0846 Azithromycin 500 MG DAILY 03/29 1000 AC 04/01 Dextrose/Water 250 ML IV 0857 Budesonide/ 2 PUF BID 03/28 1147 AC 04/01 Formoterol Fumarate INH 0858 Ceftriaxone Sodium 1,000 MG DAILY 03/29 1000 AC 04/01 IV 0857 Cholecalciferol 1,000 IU DAILY 03/29 1000 AC 04/01 PO 0857 Guaifenesin 10 ML Q6P PRN 03/28 2015 AC PO Guaifenesin/ 10 ML Q4P PRN 03/30 1830 AC 03/31 Dextromethorphan PO 0832 Ipratropium [place] 2.5 ML TID 03/28 2200 AC 04/01 INH 0837 Lorazepam 1 MG BID PRN 03/29 1700 AC 03/30 IV 1833 Metoprolol Tartrate 100 MG BID 04/01 1000 AC 04/01 PO 0857 Metoprolol Tartrate 75 MG BID 03/29 1742 DC 03/31 PO 2043 Prednisone 40 MG DAILY 04/01 1115 AC PO Assessment/Plan Assessment: 81 year old man with multiple medical problems significant for non-oxygen dependent COPD, and atrial fibrillation not on AC due to IC bleed seen for evaluation of chills, shortness of breath, and productive cough found to have pneumonia/sepsis and poorly controlled atrial fibrillation. Patient continues to remain afebrile with improved leukocytosis on intravenous antibiotics. Patient received a 5 day course of azithromycin which will be discontinued. Ceftriaxone is converted to oral Amoxicillin to complete a 7 day total course of antibiotics. Blood culture remain no growth to date. Patient remains hypoxic with increased oxygen requirements. Pulmononary consult was placed whom recommended initiation of steroids. Patient is diffusely wheezy today. Patients heart rate is improved but not optimal on the increased dose of metoprolol; it is increased to 100 mg twice daily; he blood pressure remains stable. Echocardiogram demonstrated an LVEF of 55% without any regional wall motion abnormalities. Losartan / Amlo remain on hold given the increased dose of beta faiza. Problem List -Community Acquire Pneumonia -Sepsis -Atrial fibrilltation with Rapid Ventricular Response -Iron Deficiency anemia -COPD, not on home oxygen -History of intracranial bleed -Hypertension Plan -Telemetry -Supplemental oxygen, goal > 92%, taper as tolerated -Ceftriaxone 1 g IV Daily, changed to Amoxicillin 875 mg BID for 7 day total course -Azithromycin 500 mg IV Daily Day /, course complete -Guaifenesin PRN for cough -Metoprolol increased to 100 mg PO BID -Losartan and Amlodipine held for hypotension, restart as needed -Continue home meds: Symbicort -Consult with cardiology for atrial fibrillation / rate control -Follow up blood/sputum cultures, NGTD -Strep/Legionella: negative -Rapid flu: negative -Pain control with acetaminophen -Regular Diet -DVT PPx with ALPS -FULL CODE Problem List: 1. Rapid atrial fibrillation 2. Hypoxia Pain Ratin Pain Location: None Pain Goal: Remain pain free Pain Plan: See assessment Tomorrow's Labs & Rationales: None Jaime DUKE,Mirna 04/01/17 1216: Attending MD Review Statement Attending Statement Attending MD Statement: examined this patient, discuss w/resident/PA/UX DEVELOPER, agreed w/resident/PA/UX DEVELOPER, discussed with family, reviewed EMR data (avail), discussed with nursing, discussed with case mgmt, reviewed images Attending Assessment/Plan: Overall patient appears improved. His white count has gone down since admission and is 10 yesterday. He was seen by pulmonary and because of the scattered expiratory wheezes has been started on prednisone. His beta faiza dose was increased to 100 twice a day for a rapid A. fib and the losartan and Norvasc continue to be held. Will need to follow on the heartrate and the pulmonary status closely.
--- NOTE | 2017-04-01 10:55 | Cons- Pulmonary ---
General Information and HPI Consulting Request Date of Consult: 04/01/17 Requested By: Amor Reason for Consult: Hypoxic history failure community-acquired pneumonia History of Present Illness: Patient is 81-year-old with significant past smoking history atrial fibrillation not on anticoagulation moderate to severe obstructive lung disease not on oxygen is admitted with increasing shortness breath hypoxic respiratory failure and right lower lobe community acquired pneumonia. He feels somewhat improved but remains oxygen dependent. He has had no chest pain or hemoptysis. Allergies/Medications Allergies: Coded Allergies: NO KNOWN ALLERGIES (07/24/13) Home Med List: Albuterol Sulfate (Proair Hfa) 90 MCG HFA.AER.AD 2 PUF INH Q4-6 PRN PRN SHORTNESS OF BREATH (Reported) Amlodipine Besylate 5 MG TABLET 1 TAB PO DAILY HEART (Reported) Cholecalciferol (Vitamin D3) (Vitamin D3) 2,000 UNIT TABLET 1 TAB PO DAILY VITAMIN SUPPORT (Reported) Fluticasone/Salmeterol (Advair 250-50 Diskus) 250 MCG-50 MCG/DOSE BLST.W.DEV 1 PUF INH BID BREATHING PROBLEMS (Reported) Losartan Potassium 100 MG TABLET 1 TAB PO DAILY HEART (Reported) Metoprolol Tartrate 25 MG TABLET 1 TAB PO BID HEART (Reported) Review of Systems Review of Systems Constitutional: Reports: chills. Denies: fever. Cardiovascular: Denies: chest pain. Respiratory: Reports: cough, short of breath, sputum production, wheezing. Denies: hemoptysis. GI: Denies: abdominal pain, diarrhea, nausea. Past History Travel History Traveled to [place] past 21 day No Medical History Blood Transfusion Hx: No Neurological: BRAIN BLEED 20 YEARS AGO EENT: NONE Cardiovascular: hypertension, A-FIB Respiratory: COPD Gastrointestinal: NONE Hepatic: NONE Renal: NONE Musculoskeletal: NONE Psychiatric: NONE Endocrine: NONE Blood Disorders: NONE Cancer(s): NONE TOOLS DEVELOPER/Reproductive: NONE Surgical History Surgical History: non-contributory Family History Relations & Conditions If Any: BROTHER BROTHER MOTHER MOTHER Relation not specified for: FH: CAD (coronary artery disease) FH: leukemia Psychosocial History Where Do You Live? Home Services at Home: None Smoking Status: Former Smoker ETOH Use: denies use Illicit Drug Use: denies illicit drug use Exam & Diagnostic Data Last 24 Hrs of Vital Signs/I&O Vital Signs Date Time Temp Pulse Resp B/P B/P Pulse O2 O2 Flow FiO2 Mean Ox Delivery Rate 04/01 0857 130/78 04/01 0838 91 Nasal 4.0L Cannula 04/01 0812 94 Nasal 4.0L Cannula 04/01 0639 98.0 116 20 130/80 95 Nasal 4.0L Cannula 03/31 2202 Nasal 4.0L Cannula 03/31 2145 98.9 125 24 130/78 94 Nasal Cannula 03/31 1940 92 Nasal 4.0L Cannula 03/31 1657 94 Nasal 4.0L Cannula 03/31 1426 98.0 124 22 118/72 96 Nasal 4.0L Cannula Intake & Output 04/01 1600 04/01 0800 04/01 0000 Intake Total 250 300 Output Total 875 250 Balance -625 50 Intake, Oral 250 300 Output, Urine 875 250 Oxygen saturation 4 L 91% HEENT exam shows no adenopathy have his chest shows scattered expiratory wheezing cardiac exam shows no regular rhythm abdomen is soft nontender there's trace edema Last 48 Hrs of Labs/Joe: Laboratory Tests 03/31/17 0600: CBC w Diff NO MAN DIFF REQ, RBC 4.91, MCV 67.8 L, MCH 21.0 L, MCHC 31.0 L, RDW 16.7 H, MPV 8.7, Gran % 68.9, Lymphocytes % 12.1 L, Monocytes % 16.9 H, Eosinophils % 1.7, Basophils % 0.4, Absolute Granulocytes 7.2 H, Absolute Lymphocytes 1.3, Absolute Monocytes 1.8 H, Absolute Eosinophils 0.2, Absolute Basophils 0 Assessment/Plan Impression/Plan: 81-year-old with moderate to severe COPD non-oxygen dependent though his required oxygen in the past following episode of pneumonia admitted with hypoxic history failure acute and can be acquired pneumonia. He feels he is improving somewhat though remains oxygen dependent. Recommendations: Complete course of antibiotics Taper FiO2 his saturations allow begin oral prednisone 40 mg a day. Continue baseline bronchodilator medications Consult Acknowledgment - Thank you for your consult request.
--- NOTE | 2017-04-01 12:32 | PN- Cardiology ---
Subjective Subjective: Patient feels he is improving. Less short of breath. No chest pain or palpitations. Objective Vital Signs and I&Os Vital Signs Date Time Temp Pulse Resp B/P B/P Pulse O2 O2 Flow FiO2 Mean Ox Delivery Rate 04/01 0857 130/78 04/01 0838 91 Nasal 4.0L Cannula 04/01 0812 94 Nasal 4.0L Cannula 04/01 0639 98.0 116 20 130/80 95 Nasal 4.0L Cannula 03/31 2202 Nasal 4.0L Cannula 03/31 2145 98.9 125 24 130/78 94 Nasal Cannula 03/31 1940 92 Nasal 4.0L Cannula 03/31 1657 94 Nasal 4.0L Cannula 03/31 1426 98.0 124 22 118/72 96 Nasal 4.0L Cannula Intake & Output 04/01 1600 04/01 0800 04/01 0000 03/31 1600 03/31 0800 03/31 0000 Intake Total 250 300 650 200 500 Output Total 875 250 375 425 Balance -625 50 650 -175 75 Intake, Oral 250 300 650 200 500 Number 1 Bowel Movements Output, Urine 875 250 375 425 Physical Exam: General: no apparent distress. Alert. Nasal cannula Eyes: No obvious scleral icterus. HEENT: No jugular venous distention or abnormal jugular venous pulsations. Cardiovascular: Normal intensity S1/S2. Irregular Respiratory: Trace wheezes Abdomen: Soft, nontender with no guarding or rebound tenderness. Musculoskeletal: No clubbing or cyanosis noted Skin: No obvious rashes or ulcerations. Neurologic: No gross focal deficits noted. Lymph: No gross lymphadenopathy. Current Medications: Current Medications Sig/Edilberto Start time Last Medication Dose Route Stop Time Status Admin Acetaminophen 650 MG Q6P PRN 03/28 1145 AC 03/30 PO 2051 Acetaminophen 1,000 MG Q6P PRN 03/28 1145 AC 03/28 IV 2250 Albuterol Sulfate 3 ML Q6P PRN 03/29 1015 AC 03/31 INH 1324 Albuterol Sulfate 2 PUF Q4-6 PRN PRN 03/28 1200 AC 03/31 INH 0846 Azithromycin 500 MG DAILY 03/29 1000 DC 04/01 Dextrose/Water 250 ML IV 0857 Budesonide/ 2 PUF BID 03/28 1147 AC 04/01 Formoterol Fumarate INH 0858 Ceftriaxone Sodium 1,000 MG DAILY 03/29 1000 AC 04/01 IV 0857 Cholecalciferol 1,000 IU DAILY 03/29 1000 AC 04/01 PO 0857 Guaifenesin 10 ML Q6P PRN 03/28 2015 AC PO Guaifenesin/ 10 ML Q4P PRN 03/30 1830 AC 03/31 Dextromethorphan PO 0832 Ipratropium [place] 2.5 ML TID 03/28 2200 AC 04/01 INH 0837 Lorazepam 1 MG BID PRN 03/29 1700 AC 03/30 IV 1833 Metoprolol Tartrate 100 MG BID 04/01 1000 AC 04/01 PO 0857 Metoprolol Tartrate 75 MG BID 03/29 1742 DC 03/31 PO 2043 Prednisone 40 MG DAILY 04/01 1115 AC PO Results Last 48 Hrs of Labs/Mics: Laboratory Tests 03/31/17 0600: CBC w Diff NO MAN DIFF REQ, RBC 4.91, MCV 67.8 L, MCH 21.0 L, MCHC 31.0 L, RDW 16.7 H, MPV 8.7, Gran % 68.9, Lymphocytes % 12.1 L, Monocytes % 16.9 H, Eosinophils % 1.7, Basophils % 0.4, Absolute Granulocytes 7.2 H, Absolute Lymphocytes 1.3, Absolute Monocytes 1.8 H, Absolute Eosinophils 0.2, Absolute Basophils 0 Recent Imaging Studies: Telemetry tracings were personally reviewed and show atrial fibrillation with borderline ventricular response rate Echo: Technically difficult study. Left ventricular cavity size normal. Normal left ventricular wall thickness. No obvious regional wall motion abnormalities. Left ventricular ejection fraction is estimated at 55 %. Right ventricle not well visualized, grossly normal. Mild right atrial dilatation. Mild left atrial dilatation. Unable to estimate the right ventricular systolic pressure. Franko Lemos M.D. (Electronically Signed) Final Date: 31 March 2017 09:56 Assessment/Plan Assessment/Plan 1. Sepsis/pneumonia 2. history of persistent atrial fibrillation not on anticoagulation due to a remote history of spontaneous subarachnoid intracranial hemorrhage (not due to trauma) 3. Tachycardia 4. History of hypertension 5. COPD Given the persistent mild tachycardia the patient's beta faiza was increased again which is reasonable if no objection from pulmonary; if COPD unable to tolerate the increased beta faiza we could consider oral Cardizem as well. Would hold off on resuming his other outpatient antihypertensives for now. Echocardiogram showed no evidence of tachycardia induced cardiomyopathy. Azael Lemos MD [facility] Continue telemetry? Yes
[2017-04-01 14:59] VITALS: BP 117/78
[2017-04-01] MEDS ORDERED: METOPROLOL TART50 M1 PO (16:41)
[2017-04-01] MEDS ORDERED: CEFUROXIME500 MG PO (16:41)
[2017-04-01] MEDS ORDERED: PREDNISONE10 M2 PO (16:41)
[2017-04-01 22:11] VITALS: BP 100/70
[2017-04-02 07:01] VITALS: BP 140/100
--- NOTE | 2017-04-02 07:46 | PN- Housestaff ---
Isaias Anna MD 04/02/17 0745: Subjective Follow-up For: Community Acquired Pneumonia Sepsis Afib with RVR Tele-Events Since Last Visit: Atrial Fibrillation HR 88-114 since 0000 Subjective: Patient seen and examined. He is seen sitting upright in his chair at bedside resting comfortably maintained on supplemental oxygen via nasal cannula. He appears to be in no acute distress. He reports feeling well and would like to go home when able. Review of Systems Constitutional: Reports: see HPI. Objective Last 24 Hrs of Vital Signs/I&O Vital Signs Date Time Temp Pulse Resp B/P B/P Pulse O2 O2 Flow FiO2 Mean Ox Delivery Rate 04/02 0832 94 Nasal 4.0L Cannula 04/02 0701 97.6 113 20 140/100 95 Nasal 4.0L Cannula 04/01 2230 94 Nasal 4.0L Cannula 04/01 2211 97.6 106 20 100/70 93 Nasal 4.0L Cannula 04/01 2036 Nasal 4.0L Cannula 04/01 1732 94 Nasal 4.0L Cannula 04/01 1459 98.2 106 20 117/78 95 Nasal Cannula Intake & Output 04/02 1600 04/02 0800 04/02 0000 Intake Total 240 240 Output Total 300 Balance -60 240 Intake, Oral 240 240 Number 1 Bowel Movements Output, Urine 300 Physical Exam General Appearance: Alert, Oriented X3, Cooperative, No Acute Distress Other Physical Findings: GEN: well developed, well nourished elderly man in no acute distress HEENT: NCAT, PERRL, EOMI, anicteric sclera, MMM, nasal cannula in place NECK: Supple, no JVD, trachea midline, no accessory muslce use CARD: normal s1/s2; tachycardic, irregularly irregular PULM: CTA Bilaterally ABD: Soft, NT, ND, BS+ NEURO: Awake and alert, CN II-XII grossly intact EXT: normal pulses, no cyanosis, clubbing, edema Current Medications: Current Medications Sig/Edilberto Start time Last Medication Dose Route Stop Time Status Admin Acetaminophen 650 MG Q6P PRN 03/28 1145 AC 03/30 PO 2051 Acetaminophen 1,000 MG Q6P PRN 03/28 1145 AC 03/28 IV 2250 Albuterol Sulfate 3 ML Q6P PRN 03/29 1015 AC 03/31 INH 1324 Albuterol Sulfate 2 PUF Q4-6 PRN PRN 03/28 1200 AC 03/31 INH 0846 Azithromycin 500 MG DAILY 03/29 1000 DC 04/01 Dextrose/Water 250 ML IV 0857 Budesonide/ 2 PUF BID 03/28 1147 AC 04/02 Formoterol Fumarate INH 0915 Ceftriaxone Sodium 1,000 MG DAILY 03/29 1000 DC 04/01 IV 0857 Cefuroxime Sodium 500 MG Q12 04/02 1000 AC 04/02 PO 0914 Cholecalciferol 1,000 IU DAILY 03/29 1000 AC 04/02 PO 0914 Guaifenesin 10 ML Q6P PRN 03/28 2015 AC PO Guaifenesin/ 10 ML Q4P PRN 03/30 1830 AC 03/31 Dextrom[address]an PO 0832 Ipratropium [place] 2.5 ML TID 03/28 2200 AC 04/02 INH 0826 Lorazepam 1 MG BID PRN 03/29 1700 AC 03/30 IV 1833 Metoprolol Tartrate 100 MG BID 04/01 1000 AC 04/02 PO 0914 Prednisone 40 MG DAILY 04/01 1115 AC 04/02 PO 0914 Assessment/Plan Assessment: 81 year old man with multiple medical problems significant for non-oxygen dependent COPD, and atrial fibrillation not on AC due to IC bleed seen for evaluation of chills, shortness of breath, and productive cough found to have pneumonia/sepsis and poorly controlled atrial fibrillation. Patient continues to remain afebrile on antibiotics on oral antibiotics. He remains tachycardic and hypoxic for unclear reasons. Patient is to have CTA for evaluation of possible PE. Otherwise he is asymptomatic without shortness of breath or chest pain. Losartan / Amlo remain on hold given the increased dose of beta faiza. Problem List -Community Acquire Pneumonia, on Ceftin -Sepsis, resolved -Atrial fibrilltation with Rapid Ventricular Response -Iron Deficiency anemia -COPD, not on home oxygen -History of intracranial bleed -Hypertension Plan -Telemetry -Supplemental oxygen, goal > 92%, taper as tolerated -Ceftin 500 mg BID for 7 day total antibiotic course -Guaifenesin PRN for cough -Metoprolol increased to 100 mg PO BID -Losartan and Amlodipine held for hypotension, restart as needed -Continue home meds: Symbicort -Consult with cardiology for atrial fibrillation / rate control -Consult with pulmonology for hypoxia -Follow up blood/sputum cultures, NGTD -Strep/Legionella: negative -Rapid flu: negative -Pain control with acetaminophen -Regular Diet -DVT PPx with ALPS -FULL CODE Problem List: 1. Rapid atrial fibrillation 2. Right lower lobe pneumonia Pain Ratin Pain Location: None Pain Goal: Remain pain free Pain Plan: See assessment Tomorrow's Labs & Rationales: None Mirna Sandoval MD 04/02/17 1318: Attending MD Review Statement Attending Statement Attending MD Statement: examined this patient, discuss w/resident/PA/MICROFILMER, agreed w/resident/PA/MICROFILMER, reviewed EMR data (avail), discussed with nursing, discussed with case mgmt, reviewed images Attending Assessment/Plan: Pt is still significantly tachycardic despite metoprolol being increased to 100 twice a day. His O2 requirement also hasn't really changed and is on 3 L and on by mouth prednisone for his COPD exacerbation. At this point given the high O2 requirement and persistent tachycardia we will pursue a CTA to make sure he doesn't have a PE. Patient is not on anticoagulation because of a history of a subarachnoid hemorrhage 20 years ago. I ran the CTA by Dr. Duran the consulting gas burner operator who agrees.
--- NOTE | 2017-04-02 08:41 | PN- Pulmonary ---
Subjective HPI/Critical Care Issues: Shortness of breath has improved. Objective Current Medications: Current Medications Sig/Edilberto Start time Last Medication Dose Route Stop Time Status Admin Acetaminophen 650 MG Q6P PRN 03/28 1145 AC 03/30 PO 2051 Acetaminophen 1,000 MG Q6P PRN 03/28 1145 AC 03/28 IV 2250 Albuterol Sulfate 3 ML Q6P PRN 03/29 1015 AC 03/31 INH 1324 Albuterol Sulfate 2 PUF Q4-6 PRN PRN 03/28 1200 AC 03/31 INH 0846 Azithromycin 500 MG DAILY 03/29 1000 DC 04/01 Dextrose/Water 250 ML IV 0857 Budesonide/ 2 PUF BID 03/28 1147 AC 04/01 Formoterol Fumarate INH 2154 Ceftriaxone Sodium 1,000 MG DAILY 03/29 1000 DC 04/01 IV 0857 Cefuroxime Sodium 500 MG Q12 04/02 1000 AC PO Cholecalciferol 1,000 IU DAILY 03/29 1000 AC 04/01 PO 0857 Guaifenesin 10 ML Q6P PRN 03/28 2015 AC PO Guaifenesin/ 10 ML Q4P PRN 03/30 1830 AC 03/31 Dextromethorphan PO 0832 Ipratropium [place] 2.5 ML TID 03/28 2200 AC 04/02 INH 0826 Lorazepam 1 MG BID PRN 03/29 1700 AC 03/30 IV 1833 Metoprolol Tartrate 100 MG BID 04/01 1000 AC 04/01 PO 2154 Prednisone 40 MG DAILY 04/01 1115 AC 04/01 PO 1258 Vital Signs & I&O Last 24 Hrs of Vitals and I&O: Vital Signs Date Time Temp Pulse Resp B/P B/P Pulse O2 O2 Flow FiO2 Mean Ox Delivery Rate 04/02 0832 94 Nasal 4.0L Cannula 04/02 0701 97.6 113 20 140/100 95 Nasal 4.0L Cannula 04/01 2230 94 Nasal 4.0L Cannula 04/011 97.6 106 20 100/70 93 Nasal 4.0L Cannula 04/01 2036 Nasal 4.0L Cannula 04/01 1732 94 Nasal 4.0L Cannula 04/01 1459 98.2 106 20 117/78 95 Nasal Cannula 04/01 0857 130/78 Intake & Output 04/02 1600 04/02 0800 04/02 0000 Intake Total 240 240 Output Total 300 Balance -60 240 Intake, Oral 240 240 Number 1 Bowel Movements Output, Urine 300 Oxygen saturation 4 L 94-95% exam of his chest shows rare rhonchi cardiac exam shows a regular rhythm Impression/Plan Impression/Plan Impression/Plan: 81-year-old with severe COPD admitted with community-acquired pneumonia and acute hypoxic respiratory failure which is slowly improving. Recommendations: Complete course of antibiotics Taper FiO2 his saturations allow begin slow prednisone taper. Patient will likely need oxygen at discharge
--- NOTE | 2017-04-02 12:02 | PN- Cardiology ---
Subjective Subjective: Patient feels well. He denies chest pain or shortness of breath. Review of Systems: Eyes no blurred or double vision Ears no deafness or ringing Nose and throat no recurrent sinusitis Lungs per history of present illness Heart per history of present illness Abdomen no nausea vomiting Musculoskeletal occasional muscle and joint pains Psych no anxiety or depression Neuro without recurrent headache or seizures Endocrine no heat or cold intolerance Objective Vital Signs and I&Os Vital Signs Date Time Temp Pulse Resp B/P B/P Pulse O2 O2 Flow FiO2 Mean Ox Delivery Rate 04/02 0832 94 Nasal 4.0L Cannula 04/02 0701 97.6 113 20 140/100 95 Nasal 4.0L Cannula 04/01 2230 94 Nasal 4.0L Cannula 04/01 2211 97.6 106 20 100/70 93 Nasal 4.0L Cannula 04/01 203 Nasal 4.0L Cannula 04/01 1732 94 Nasal 4.0L Cannula 04/01 1459 98.2 106 20 117/78 95 Nasal Cannula Intake & Output 04/02 1600 04/02 0800 04/02 0000 04/01 1600 04/01 0800 04/01 0000 Intake Total 240 240 660 250 300 Output Total 300 600 875 250 Balance -60 240 60 -625 50 Intake, IV 260 Intake, Oral 240 240 400 250 300 Number 1 Bowel Movements Output, Urine 300 600 875 250 Physical Exam: Patient is a well-developed well-nourished male appearing in no acute distress HEENT is unremarkable Neck is supple there is no JVD Lungs are clear Heart irregular rhythm S1 and S2 are normal no murmurs gallops or rubs Abdomen bowel sounds positive Extremities without edema Current Medications: Current Medications Sig/Edilberto Start time Last Medication Dose Route Stop Time Status Admin Acetaminophen 650 MG Q6P PRN 03/28 1145 AC 03/30 PO 2051 Acetaminophen 1,000 MG Q6P PRN 03/28 1145 AC 03/28 IV 2250 Albuterol Sulfate 3 ML Q6P PRN 03/29 1015 AC 03/31 INH 1324 Albuterol Sulfate 2 PUF Q4-6 PRN PRN 03/28 1200 AC 03/31 INH 0846 Budesonide/ 2 PUF BID 03/28 1147 AC 04/02 Formoterol Fumarate INH 0915 Ceftriaxone Sodium 1,000 MG DAILY 03/29 1000 DC 04/01 IV 0857 Cefuroxime Sodium 500 MG Q12 04/02 1000 AC 04/02 PO 0914 Cholecalciferol 1,000 IU DAILY 03/29 1000 AC 04/02 PO 0914 Guaifenesin 10 ML Q6P PRN 03/28 2015 AC PO Guaifenesin/ 10 ML Q4P PRN 03/30 1830 AC 03/31 Dextrom[address]orphan PO 0832 Ipratropium [place] 2.5 ML TID 03/28 2200 AC 04/02 INH 0826 Lorazepam 1 MG BID PRN 03/29 1700 AC 03/30 IV 1833 Metoprolol Tartrate 100 MG BID 04/01 1000 AC 04/02 PO 0914 Prednisone 40 MG DAILY 04/01 1115 AC 04/02 PO 0914 Results Last 48 Hrs of Labs/Mics: Telemetry personally reviewed atrial fibrillation with controlled ventricular response Assessment/Plan Assessment/Plan 1. Sepsis/pneumonia 2. History of persistent atrial fibrillation not on anticoagulation due to a remote history of spontaneous subarachnoid intracranial hemorrhage (not due to trauma) 3. Tachycardia 4. History of hypertension 5. COPD Recommendations 1. Continue current medications 2. CT of the chest is pending the possibility of pulmonary embolism 3. Continue to monitor on telemetry Continue telemetry? Yes
[2017-04-02 14:35] VITALS: BP 130/92
--- NOTE | 2017-04-02 14:37 | CT SCAN REPORT ---
EXAMINATION: CT ANGIOGRAM OF THE CHEST WITH AND WITHOUT CONTRAST (CT PULMONARY ANGIOGRAM FOR PE) CLINICAL INFORMATION: Reason for Study:
Presumptive Dx: HYPOXIA, TACHYCARDIA
Signs Symptoms: R/O PE
COMPARISON: CT scan of the chest with contrast dated 7 07/28/2013. TECHNIQUE: Prior to contrast administration, noncontrast localization images were obtained. Subsequently, multidetector volumetric imaging was performed from the thoracic inlet to below the diaphragms following the administration of 80 mL Omnipaque 350 intravenous contrast. No contrast reaction reported. Sagittal, coronal, and MIP oblique sagittal reformatted images were obtained on the CT workstation, uploaded to PACS, and reviewed. Total exam dose-length product 404.95 mGy-cm. FINDINGS: QUALITY OF STUDY/CONTRAST BOLUS: Satisfactory PULMONARY ARTERIES: No central or segmental pulmonary emboli. THORACIC AORTA: No aneurysm or dissection. LUNG: There are multiple areas of increased density present, specifically in the inferior posterior aspect of the right upper lobe with multiple focal areas of patchy airspace opacification extending into the right middle lobe, the right lower lobe at the right lung base, the lingula at the base and anterior mid lingula and the left lower lobe at the lung base. The remainder of the left upper lobe is spared. PLEURA: A small right-sided pleural effusion is present, slightly increased compared to the prior study with a new small left-sided pleural effusion is present. No pneumothorax. MEDIASTINUM: Normal heart size. No pericardial effusion. There are multiple prominent lymph nodes present in the mediastinum, however no feng lymphadenopathy is noted. There is no hilar lymphadenopathy. No evidence of septal bowing or right heart strain. The thyroid lobes are unremarkable. CHEST WALL/AXILLA: No axillary or internal mammary lymphadenopathy. OSSEOUS STRUCTURES: No acute or suspicious osseous abnormality. Severe reverse S-shaped scoliosis of the thoracolumbar spine again noted. UPPER ABDOMEN: Unremarkable. No reflux of contrast into the hepatic veins to suggest elevated right heart pressures. IMPRESSION: 1. No pulmonary emboli are identified. 2. Multifocal areas of airspace opacification involving the right upper lobe, right middle lobe right lower lobe, left lower lobe and lingula, similar in appearance to the previous study of 07/28/2013 however larger in size and with more focal locations. Follow-up to resolution is recommended. 3. Small bilateral pleural effusions, the right pleural effusion was present on the prior study is currently slightly increased in size. VTE: negative
[2017-04-02 22:13] VITALS: BP 132/82
[2017-04-03 06:56] VITALS: BP 126/80
[2017-04-03 07:58] LABS: ABSOLUTE BASOPHIL COUNT 0 /CUMM (0.0-0.2); ABSOLUTE EOSINOPHIL COUNT 0.1 /CUMM (0.0-0.7); ABSOLUTE GRANULOCYTE CT 13.2 /CUMM (1.4-6.5); ABSOLUTE MONOCYTE COUNT 0.4 /CUMM (0.10-0.60); BASOPHIL % 0.1 % (0.0-2.0); EOSINOPHIL % 0.4 % (0-5); GRANULOCYTE % 84.3 % (42.2-75.2); HEMATOCRIT 33.1 % (42-52); MEAN CORPUSCULAR HGB CONC 31.2 G/DL (33.0-37.0); MEAN CORPUSCULAR VOLUME 67.5 FL (80.0-94.0); MEAN PLATELET VOLUME 8.5 FL (7.4-10.4); PLATELET COUNT 436 /CUMM (130-400); RBC DISTRIBUTION WIDTH 16.8 % (11.5-14.5); RED BLOOD CELL CT 4.91 /CUMM (4.70-6.10); WHITE BLOOD CELL COUNT 15.6 /CUMM (4.8-10.8)
--- NOTE | 2017-04-03 08:06 | PN- Pulmonary ---
Subjective HPI/Critical Care Issues: Shortness of breath is improved. CT scan revealing for pulmonary embolism. Oxygen saturations improved Objective Current Medications: Current Medications Sig/Edilberto Start time Last Medication Dose Route Stop Time Status Admin Acetaminophen 650 MG Q6P PRN 03/28 1145 AC 03/30 PO 2051 Acetaminophen 1,000 MG Q6P PRN 03/28 1145 AC 03/28 IV 2250 Albuterol Sulfate 3 ML Q6P PRN 03/29 1015 AC 03/31 INH 1324 Albuterol Sulfate 2 PUF Q4-6 PRN PRN 03/28 1200 AC 03/31 INH 0846 Budesonide/ 2 PUF BID 03/28 1147 AC 04/02 Formoterol Fumarate INH 2048 Cefuroxime Sodium 500 MG Q12 04/02 1000 AC 04/02 PO 2047 Cholecalciferol 1,000 IU DAILY 03/29 1000 AC 04/02 PO 0914 Diltiazem HCl 120 MG DAILY 04/02 1537 AC 04/02 PO 1615 Guaifenesin 10 ML Q6P PRN 03/28 2015 AC PO Guaifenesin/ 10 ML Q4P PRN 03/30 1830 AC 03/31 Dextromethorphan PO 0832 Ipratropium [place] 2.5 ML TID 03/28 2200 AC 04/02 INH 1910 Lorazepam 1 MG BID PRN 03/29 1700 AC 03/30 IV 1833 Metoprolol Tartrate 100 MG BID 04/01 1000 AC 04/02 PO 2049 Patient Medication 1 ED ONE ONE 04/02 1645 DC Teaching ED 04/02 1646 Prednisone 40 MG DAILY 04/01 1115 AC 04/02 PO 0914 Vital Signs & I&O Last 24 Hrs of Vitals and I&O: Vital Signs Date Time Temp Pulse Resp B/P B/P Pulse O2 O2 Flow FiO2 Mean Ox Delivery Rate 04/03 0656 97.4 88 20 126/80 95 Nasal 2.0L Cannula 04/02 2212 97.7 81 20 132/82 95 Nasal Cannula 04/02 2049 97 110/78 04/02 2011 Nasal 3.0L Cannula 04/02 1910 92 Nasal 2.0L Cannula 04/02 1600 Nasal 3.0L Cannula 04/02 1435 96.9 96 20 130/92 94 Nasal 3.0L Cannula 04/02 0832 94 Nasal 4.0L Cannula 04/02 08 93 Nasal 3.0L Cannula Intake & Output 04/03 1600 04/03 0800 04/03 0000 Intake Total 475 240 Output Total Balance 475 240 Intake, Oral 475 240 And saturation 2 L 95% exam of his chest shows decreased breath sounds are no wheezes or crackles cardiac exam shows no regular S1 and S2 without murmurs Impression/Plan Impression/Plan Impression/Plan: 81-year-old with hypoxic respiratory failure is clearly improved. Recommendations: Complete course of antibiotics Taper FiO2 his saturations allow begin slow prednisone taper. Patient will likely need oxygen at discharge no further pulmonary suggestions patient can be seen next week in the office for oxygen tapering
[2017-04-03] MEDS ORDERED: DILTIAZEM ER120 M2 PO ×2 (08:32→09:35)
[2017-04-03] MEDS ORDERED: PREDNISONE10 M2 PO ×2 (08:32→09:35)
[2017-04-03] MEDS ORDERED: CEFUROXIME500 MG PO ×2 (08:32→09:35)
--- NOTE | 2017-04-03 08:33 | PN- Housestaff ---
Isaias Anna MD 04/03/17 0833: Subjective Follow-up For: Community Acquired Pneumonia Sepsis Afib with RVR Tele-Events Since Last Visit: Atrial Fibrillation HR 80s-90s Subjective: Patient seen and examined. He is seen sitting upright in his chair at bedside resting comfortably. He appears to be in no acute distress. He reports feeling well and denies any new complaints. Review of Systems Constitutional: Reports: see HPI. Objective Last 24 Hrs of Vital Signs/I&O Vital Signs Date Time Temp Pulse Resp B/P B/P Pulse O2 O2 Flow FiO2 Mean Ox Delivery Rate 04/03 0920 93 Nasal 2.0L Cannula 04/03 0846 128/68 04/03 0829 94 Nasal 3.0L Cannula 04/03 0656 97.4 88 20 126/80 95 Nasal 2.0L Cannula 04/02 2213 97.7 81 20 132/82 95 Nasal Cannula 04/02 2049 97 110/78 04/02 2011 Nasal 3.0L Cannula 04/02 1910 92 Nasal 2.0L Cannula 04/02 1600 Nasal 3.0L Cannula 04/02 1435 96.9 96 20 130/92 94 Nasal 3.0L Cannula Intake & Output 04/03 1600 04/03 0800 04/03 0000 Intake Total 475 240 Output Total Balance 475 240 Intake, Oral 475 240 Physical Exam General Appearance: Alert, Oriented X3, Cooperative, No Acute Distress Other Physical Findings: GEN: well developed, well nourished elderly man in no acute distress HEENT: NCAT, PERRL, EOMI, anicteric sclera, MMM, nasal cannula in place NECK: Supple, no JVD, trachea midline, no accessory muslce use CARD: normal s1/s2; tachycardic, irregularly irregular PULM: CTA Bilaterally ABD: Soft, NT, ND, BS+ NEURO: Awake and alert, CN II-XII grossly intact EXT: normal pulses, no cyanosis, clubbing, edema Current Medications: Current Medications Sig/Edilberto Start time Last Medication Dose Route Stop Time Status Admin Acetaminophen 650 MG Q6P PRN 03/28 1145 AC 03/30 PO 2051 Acetaminophen 1,000 MG Q6P PRN 03/28 1145 AC 03/28 IV 2250 Albuterol Sulfate 3 ML Q6P PRN 03/29 1015 AC 03/31 INH 1324 Albuterol Sulfate 2 PUF Q4-6 PRN PRN 03/28 1200 AC 03/31 INH 0846 Budesonide/ 2 PUF BID 03/28 1147 AC 04/03 Formoterol Fumarate INH 0845 Cefuroxime Sodium 500 MG Q12 04/02 1000 AC 04/03 PO 0845 Cholecalciferol 1,000 IU DAILY 03/29 1000 AC 04/03 PO 0846 Diltiazem HCl 120 MG DAILY 04/02 1537 AC 04/03 PO 0846 Guaifenesin 10 ML Q6P PRN 03/28 2015 AC PO Guaifenesin/ 10 ML Q4P PRN 03/30 1830 AC 03/31 Dextromethorphan PO 0832 Ipratropium [place] 2.5 ML TID 03/28 2200 AC 04/03 INH 0922 Lorazepam 1 MG BID PRN 03/29 1700 AC 03/30 IV 1833 Metoprolol Tartrate 100 MG BID 04/01 1000 AC 04/03 PO 0846 Patient Medication 1 ED ONE ONE 04/02 1645 MO Teaching ED 04/02 1646 Prednisone 40 MG DAILY 04/01 1115 AC 04/03 PO 0846 Last 24 Hrs of Lab/Joe Results Last 24 Hrs of Labs/Mics: Laboratory Tests 04/03/17 0646: Anion Gap 11, Estimated GFR > 60, BUN/Creatinine Ratio 40.0 H, Magnesium 1.8, CBC w Diff NO MAN DIFF REQ, RBC 4.91, MCV 67.5 L, MCH 21.0 L, MCHC 31.2 L, RDW 16.8 H, MPV 8.5, Gran % 84.3 H, Lymphocytes % 12.8 L, Monocytes % 2.4, Eosinophils % 0.4, Basophils % 0.1, Absolute Granulocytes 13.2 H, Absolute Lymphocytes 2.0, Absolute Monocytes 0.4, Absolute Eosinophils 0.1, Absolute Basophils 0 Assessment/Plan Assessment: 81 year old man with multiple medical problems significant for non-oxygen dependent COPD, and atrial fibrillation not on AC due to IC bleed seen for evaluation of chills, shortness of breath, and productive cough found to have pneumonia/sepsis and poorly controlled atrial fibrillation. Patient continues to feel well and reports no symptoms. 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 Patients leukocytosis today is most likely due to steroids. Patients heart rate is much more controlled with the addition of Cardizem. He is to be dishcharged to home with oxygen and prescriptions for cardizem, metoprolol at its new dose, ceftin, and a prednisone taper. He is instructed to stop taking amlodipine and losartan at time of discharge. Problem List -Community Acquire Pneumonia, on Ceftin -Sepsis, resolved -Atrial fibrilltation with Rapid Ventricular Response -Iron Deficiency anemia -COPD, not on home oxygen -History of intracranial bleed -Hypertension Plan -Discharge to home -Supplemental oxygen, goal > 92%, taper as tolerated -Prednionse taper -Ceftin 500 mg BID for 7 day total antibiotic course -Guaifenesin PRN for cough -Metoprolol increased to 100 mg PO BID -Cardizem CD 120 mg PO Daily -Losartan and Amlodipine held for hypotension, restart as needed -Continue home meds: Symbicort -Consult with cardiology for atrial fibrillation / rate control -Consult with pulmonology for hypoxia -Follow up blood/sputum cultures, NGTD -Strep/Legionella: negative -Rapid flu: negative -Pain control with acetaminophen -Regular Diet -DVT PPx with ALPS -FULL CODE Problem List: 1. Rapid atrial fibrillation 2. Right lower lobe pneumonia 3. Pneumonia Pain Ratin Pain Location: None Pain Goal: Remain pain free Pain Plan: See assessment Tomorrow's Labs & Rationales: None Jaime DUKE,Mirna 04/03/17 1150: Attending MD Review Statement Attending Statement Attending MD Statement: examined this patient, discuss w/resident/PA/CARE PARTNER, agreed w/resident/PA/CARE PARTNER, discussed with family, reviewed EMR data (avail), discussed with nursing, discussed with case mgmt, reviewed images Attending Assessment/Plan: Patient is doing well. He continues to require 2-3 L of oxygen. We added Cardizem CD 120 mg yesterday based on Dr. Orosco's recommendations for rapid A. fib. So right now he is on the metoprolol and the Cardizem with no losartan or Norvasc. He finished 5 days of IV azithromycin and will finish 7 days of the cephalosporin total for multi lobar pneumonia. The CTA did show multilobar pneumonia which is contributing to the acute hypoxic respiratory failure with a rapid A. fib and the COPD exacerbation. He has A. fib not on anticoagulation because of history of a spontaneous subarachnoid hemorrhage in the past. We set him up with visiting nurse service and he'll leave with close outpatient follow- up with Dr. Duran, his zoo veterinarian and his PCP. He leave on the prednisone taper, finish the duration of antibiotics and the rate control medications.
[2017-04-03 08:46] VITALS: BP 128/68
[2017-04-03] MEDS ORDERED: METOPROLOL TART50 M1 PO (09:35)
--- NOTE | 2017-04-03 11:07 | Discharge Summary ---
Visit Information Visit Dates Admission Date: 03/28/17 Discharge Date: 04/03/17 Hospital Course Course Attending Physician: Jaime DUKE,Mirna Venegas Primary Care Physician: Selina Deal APRN Consulting Request: 1 Consulting Specialty: Cardiology Consulting Request: 2 Consulting Specialty: Pulmonary Disease Hospital Course: 81-year-old man with past medical history of COPD not on home oxygen, hypertension, atrial fibrillation not on anticoagulation due to intracranial bleed 20 years ago seen for evaluation of worsening shortness breath with productive cough and chills for 1 day prior to admission. Patient reported progressively worsening shortness of breath on exertion for the week prior to admission with a cough productive of clear/white sputum. ED course -Vitals: Temp 99.2-99.5, HR 116-145, RR 22-20, BP 115-119/65-71, O2 89-92% on 2.0 L O2 via nasal cannula -CBC: WBC 17.1, Hgb/HCT 12.1/39.0, platelet 398 -BMP: Sodium 145, potassium 4.0, crit Lord 100, CO2 27, urea 25, creatinine 1.0, anion gap 17 -LFT: AST 15, ALT 28, ALP 135 -Miscellaneous: Troponin I 0.02, lactic acid 2.2 -Rapid flu: Negative -CXR: Increased right base opacity suspicious for pneumonia -EKG: Atrial fibrillation HR 118 Problem list on admission -Community-acquired pneumonia -Sepsis -Atrial fibrillation with rapid ventricular response -Acute hypoxic respiratory failure -History of COPD, not on home oxygen -Hypertension -Microcytic anemia, 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 He was started on intravenous ceftriaxone/azithromycin after cultures were obtained, no sputum culture was obtained. Strep/Legionella antigen returned negative. Patient remained afebrile during the hospitalization with improved leukocytosis. Blood cultures remained no growth to date at time of discharge. Patient was converted from intravenous ceftriaxone to oral Ceftin after remaining afebrile for the hospital course: He completed a 5 day total course of azithromycin. Patient is given a 7 day total course of antibiotics. Patient remained hypoxic for unclear reasons during the hospitalization requiring up to 4 L of supplemental oxygen via nasal cannula. 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 Duran who recommended starting patient on oral steroids. CTA was obtained which ruled out pulmonary embolism. Patient is discharged home with a prednisone taper and instruction to follow-up with his school examiner on discharge. He is given supplemental oxygen at time of discharge. Patient's heart rate remained poorly controlled during the hospital stay for which a cardiology consult was placed. Patient amlodipine/losartan were held and his metoprolol tartrate was increased to maximum dose. Cardizem CD was added for further rate control with adequate rate control at time of discharge. Echocardiogram demonstrated an LVEF of 55% without any regional wall motion abnormalities. Amlodipine and losartan are held at time of discharge. Patient is to follow-up with his day treatment clinician/art therapist. Patients MCV was found to be chronically low since at least 2010 upon admission. Patient reports having a colonoscopy with Dr. Johnson a "long time ago". Report from 2005 is purged. Patient denies any bright red blood per rectum. He does however admit ot a history fo thalasemia trait. Iron was found to be low with otherwise normal TIBC/Ferritin. Patient is to follow up with his photoengraver apprentice Dr. Johnson after discharge for further evaluation and possible colonoscopy. Allergies: Coded Allergies: NO KNOWN ALLERGIES (07/24/13) Significant Procedures: SERVICE DATE: 03/28/17 EXAM TYPE: RAD - XRY-CHEST XRAY, TWO VIEWS IMPRESSION: Increasing right base opacity is suspicious for pneumonia. Recommend follow-up after treatment to confirm resolution. SERVICE DATE: 03/29/17- EXAM TYPE: RAD - XRY-PORTABLE CHEST XRAY IMPRESSION: Mild interval worsening of airspace disease at the right lung base, concerning for pneumonia. A tiny amount of right-sided pleural fluid is suspected. SERVICE DATE: 03/29/17- EXAM TYPE: CARD - ECHOCARDIOGRAM CONCLUSIONS Technically difficult study. Left ventricular cavity size normal. Normal left ventricular wall thickness. No obvious regional wall motion abnormalities. Left ventricular ejection fraction is estimated at 55 %. Right ventricle not well visualized, grossly normal. Mild right atrial dilatation. Mild left atrial dilatation. Unable to estimate the right ventricular systolic pressure. SERVICE DATE: 04/02/17 EXAM TYPE: CAT - CTA CHEST-PULMONARY EMBOLISM IMPRESSION: 1. No pulmonary emboli are identified. 2. Multifocal areas of airspace opacification involving the right upper lobe, right middle lobe right lower lobe, left lower lobe and lingula, similar in appearance to the previous study of 07/28/2013 however larger in size and with more focal locations. Follow-up to resolution is recommended. 3. Small bilateral pleural effusions, the right pleural effusion was present on the prior study is currently slightly increased in size. VTE: negative Disposition Summary Disposition Principal Diagnosis: Community Acquired Pneumonia Sepsis Additional Diagnosis: Atrial Fibrillation with Rapid Ventricular Response Discharge Disposition: home health services Discharge Instructions General Discharge Information Code Status: Full Code Patient's Diet: Regular Diet Patient's Activity: Return to full activity as tolerated Follow-Up Instructions/Appts: Take Ceftin and prednisone as directed. Be sure to finish these medications. Stop taking Amlodipine and Losartan. Your dose of Metoprolol has changed, please start taking 100 mg twice day. You have been provided a new prescription. Start taking cardizem CD 120 mg Daily. Follow up with your school examiner and primary care provider after discharge. Schedule and appointment with your photoengraver apprentice Dr. Johnson for a possible colonoscopy. Medications at Discharge Discharge Medications: Stop taking the following medications: Losartan Potassium (Losartan Potassium) 100 MG TABLET ORAL DAILY Amlodipine Besylate (Amlodipine Besylate) 5 MG TABLET ORAL DAILY Qty = 90 Metoprolol Tartrate (Metoprolol Tartrate) 25 MG TABLET ORAL TWICE DAILY Qty = 180 Continue taking these medications: Cholecalciferol (Vitamin D3) (Vitamin D3) 2,000 UNIT TABLET 1 Tablet ORAL DAILY Comments: Last Taken:04/03/17 Time:0900 Fluticasone/Salmeterol (Advair 250-50 Diskus) 250 MCG-50 MCG/DOSE BLST.W.DEV 1 Puff Inhale through mouth TWICE DAILY Qty = 180 Comments: Last Taken:04/03/17 Time:0900 GIVEN SYMBICORT Albuterol Sulfate (Proair Hfa) 90 MCG HFA.AER.AD 2 Puff Inhale through mouth EVERY 4-6 HOURS NEEDED as needed for SHORTNESS OF BREATH Start taking the following new medications: Prednisone (Prednisone) 10 MG TABLET 0 ORAL TAPER Qty = 18 No Refills Instructions: DATES TAB/DAY 04/04-04/06 3 04/07-04/09 2 04/10-04/11 1 THEN STOP Comments: Last Taken:04/03/17 Time:0900 Metoprolol Tartrate (Metoprolol Tartrate) 50 MG TABLET 100 Milligram ORAL TWICE DAILY Qty = 60 No Refills Instructions: TAKE DIRECTED Comments: Last Taken:04/03/17 Time:0900 Diltiazem Cd (Diltiazem ER) 120 MG CAP.ER.DEG 120 Milligram ORAL DAILY Qty = 30 No Refills Instructions: TAKE DIRECTED Comments: Last Taken:04/03/17 Time:0900 Cefuroxime Axetil (Cefuroxime) 500 MG TABLET 1 Tablet ORAL TWICE DAILY Qty = 1 No Refills Instructions: TAKE THIS TABLET TONIGHT 04/03/17 Comments: Last Taken:04/03/17 Time:0900 Copies To: Ashley DUKE,Jose Tejeda; Elizabeth DUKE,Min Martin; Canelo DUKE,[facility]; Selina Deal APRN
== END 2017-04-03 14:35 | disposition home health service (06) | DRG 871 ==
LOC: ERH 08:32 → 1NO 10:52 → ERHI 10:52 → ENRESERV 14:58 → ENTRNSPT 17:55 → 1NO 18:30 → CMPTRNSPT 18:38 → 1NO 18:47 → ENPENDDIS 04-03 09:33 → ENTRNSPT 04-03 14:07 → CMPTRNSPT 04-03 14:23 → 1NO 04-03 14:35
PROVIDERS: Hospitalist; Internal Medicine; Internal Medicine Interventional Cardiology; Physician Assistant Medical
DX: A41.9 Sepsis, unspecified organism (principal); J18.9 Pneumonia, unspecified organism; J96.01 Acute respiratory failure with hypoxia; E87.2 Acidosis; I48.2 Chronic atrial fibrillation; J44.0 Chronic obstructive pulmonary disease with (acute) lower respiratory infection; R00.0 Tachycardia, unspecified; D50.9 Iron deficiency anemia, unspecified; I10 Essential (primary) hypertension; Z87.891 Personal history of nicotine dependence; Z86.79 Personal history of other diseases of the circulatory system
CPT/HCPCS: 1NP; 36592; 71045; 71046; 82436; 87040; 87070; 87449; 87450; 87804; 87804-59; 93005; 93010; 93306; 96374; 99291; J0456; J0696; J1160; J1650; J3490; J7060